=== PATIENT | male | born 1955 | race Caucasian/White ===

== ENCOUNTER 2024-03-14 14:45 | Outpatient (OUT) | payer OTHER, SELFPAY ==
--- NOTE | 2024-03-14 15:02 | XR_ITS ---
The [address] [address] Patient Name: JUDITH CRENSHAW MRN: [id number] date: 1955 Sex: M Assigned Patient Location: [facility] Current Patient Location: Accession/Order Number: [id number] Exam Date: 03/14/2024 15:35 Report Date: 03/15/2024 14:26 At the request of: KARLY SOSA Procedure: XR chest 2V PROCEDURE: XR chest 2V DATE: 03/14/2024 2:35 PM CDT COMPARISONS: 10/23/2015 CLINICAL INDICATION: 68 years Male Preop exam FINDINGS: The cardiomediastinal silhouette and pulmonary vasculature are within normal limits. The lungs are clear. There is no evidence of pleural effusion or pneumothorax. XR/XR chest 2V IMPRESSION: Chest radiograph is within normal limits. Electronically authenticated by: REBEL VILLARREAL Date: 03/15/2024 14:26
--- NOTE | 2024-03-14 15:02 | ECG_ITS ---
The [facility] Test Date: 2024-03-14 Pat Name: Dario Dick Department: Room: - Gender: Male Color Maker: : 1955 Requested By: Alex Jaimes Order Number: [id number] Reading MD: SIDDHARTH MUNIZ Measurements Intervals [place] Rate: 53 P: 35 [place]: 159 QRS: 18 QRSD: 126 T: 31 QT: 440 QTc: 415 Interpretive Statements SINUS BRADYCARDIA MODERATE INTRAVENTRICULAR CONDUCTION DELAY [110+ ms QRS DURATION] No previous ECG available for comparison Electronically Signed On 03-14-2024 22:08:32 EDT by SIDDHARTH MUNIZ
[2024-03-14 15:44] LABS: Basophils Percent Auto 0.6 % (0.2-2.0); Eosinophils Absolute Auto 0.1 10^3/uL (0.0-0.7); Eosinophils Percent Auto 1.7 % (0.9-7.0); Hematocrit 40.8 % (42.0-54.0); Immature Granulocytes Abs Auto 0.02 10^3/uL (0.00-0.03); Immature Granulocytes Pct Auto 0.3 % (0.0-0.5); Lymphocytes Percent Auto 28.7 % (20.5-60.0); Mean Corpuscular HGB Conc 34.3 g/dL (29.9-35.2); Mean Corpuscular Hemoglobin 28.9 pg (25.9-34.0); Mean Corpuscular Volume 84.3 fL (80.0-94.0); Mean Platelet Volume 9.4 fL (9.5-13.5); Monocytes Absolute Auto 0.6 10^3/uL (0.3-0.8); Monocytes Percent Auto 8.2 % (1.7-12.0); Neutrophils Absolute Auto 4.3 10^3/uL (1.4-6.5); Neutrophils Percent Auto 60.5 % (43.0-75.0); Platelet Count 249 10^3/uL (150-450); Red Blood Count 4.84 10^6/uL (4.70-6.10); Red Cell Distribution Width 12.8 % (11.0-15.0); White Blood Count 7.1 10^3/uL (4.0-11.0)
[2024-03-14 15:53] LABS: INR 0.99; Prothrombin Time 10.5 sec (9.0-11.6)
[2024-03-14 16:21] LABS: Anion Gap 11.7; BUN Creatinine Ratio 12.5; Carbon Dioxide 26.9 mmol/L (21.0-32.0); Chloride 103 mmol/L (98-107); Estimated GFR (African America >60 (>=60 mL/min/1.73m^2); Estimated GFR (Non-African Ame >60 (>=60 mL/min/1.73m^2); Glucose 149 mg/dL (74-106); Potassium 3.6 mmol/L (3.5-5.1); Sodium 138 mmol/L (136-145)
[2024-03-14 16:25] LABS: Estimated Average Glucose 166 mg/dL; Glycohemoglobin A1C 7.4 % (4.5-6.2)
== END 2024-03-14 14:46 | disposition home or self-care (01) ==
LOC: PST 14:53
PROVIDERS: Visit Provider Orthopaedic Surgery
DX: Z01.810 Encounter for preprocedural cardiovascular examination (principal); Z01.812 Encounter for preprocedural laboratory examination; G56.02 Carpal tunnel syndrome, left upper limb
CPT/HCPCS: 71046; 80048; 83036; 85025; 85610; 85730; 93005

== ENCOUNTER 2024-03-28 12:00 | Day surgery (SDC) | payer OTHER, SELFPAY ==
[2024-03-14 15:29] VITALS: BP 155/81; PULSE 64; TEMP 36.3; O2SAT 97; BMI 40.5
[2024-03-28 11:55] VITALS: BMI 40.0
[2024-03-28 12:20] VITALS: BMI 40.0
[2024-03-28 12:22] VITALS: BP 152/86; PULSE 68; TEMP 36.2; O2SAT 97
[2024-03-28] MEDS: 0.9 % SODIUM CHLORIDE 500 ML 50 ML IV (12:25)
[2024-03-28] MEDS: CEFAZOLIN SODIUM/DEXTROSE,ISO 2 GM/50 ML PIGGYBACK IV (13:26)
[2024-03-28] MEDS: BUPIVACAINE HCL 0.5% PF 50 MG/10 ML VIAL 5 ML INJ (13:30)
[2024-03-28] MEDS: LIDOCAINE HCL 1%-EPINEPHRINE 1:100,000 10 ML MDV 5 ML INJ (13:30)
[2024-03-28 13:55] VITALS: BP 116/77; PULSE 63; TEMP 36.3; O2SAT 97
--- NOTE | 2024-03-28 14:01 | PM.ORPRC ---
Procedure Note Date of procedure: 03/28/24 Pre-op diagnosis: Left carpal tunnel syndrome Post-op diagnosis: same as pre-op Procedure: Preoperative Diagnosis: Left carpal tunnel syndrome Postoperative Diagnosis: Same Procedure: Left endoscopic carpal tunnel release Tourniquet time: 4 Minutes at 225 mmHg Complications: None Indications for Surgery: The patient has had signs and symptoms of carpal tunnel syndrome that have failed conservative treatment. Options were discussed with the patient as well as risks and benefits and they have elected to proceed with the surgery. Operative procedure: Prior to surgery the patient received IV antibiotics. The operative extremity was marked preoperatively. After informed consent was obtained the patient was brought to the operating room where MAC anesthesia was administered. Preoperatively 5 mm 0.5% Marcaine plain with 5 mm 1% lidocaine with epinephrine were infiltrated in the operative sight. The arm was then prepped and draped in the usual sterile fashion after placement of a well padded tourniquet. The arm was elevated, exsanguinated, and the tourniquet was inflated. A 1 cm incision was then made in a preexisting distal wrist crease. Hemostasis was achieved with bipolar electrocautery. Blunt dissection was then carried down to the forearm fascia where a U-based flap was created. Proximally the fascia was incised for 2 cm under direct visualization. Attention was then turned to the endoscopic carpal tunnel release. The synovial elevator was used to clear the underside of the transverse carpal ligament of soft tissue. Sequential dilators were then placed. The endoscopic carpal tunnel released instrument was then placed. The transverse fibers were then identified and release from distal to proximal. The ligament was completely release. The tourniquet was deflated and hemostasis was achieved. The wound was irrigated and closed with a nylon suture. A sterile dressing was placed. The patient was brought to the recovery room. There were no preoperative or postoperative complications. Anesthesia: MAC and local Surgeon: Alex Jaimes Estimated blood loss (mL): 1 Pathology: none sent Condition: stable Disposition: PACU
[2024-03-28 14:10] VITALS: BP 137/90; PULSE 57; TEMP 36.4; O2SAT 96
[2024-03-28 14:25] VITALS: BP 154/78; PULSE 60; TEMP 36.4; O2SAT 97
--- OUTSIDE RECORDS SUMMARY | 2024-04-26 14:08 | XMS_ITS | CCD ---
Author Organization [facility] Care Team Providers Care Classification Inspector Name Role Phone UNKNOWN, PHYSICIAN Referring Unavailable [...] Provider Brittanie Marshall DO Primary Care Provider [phone] Kelly Reynoso MD Primary Care Provider Renetta Munoz NP Unavailable BRITTANIE MARSHALL Attending Unavailable ELIZABETH SHETH Attending Unavailable MATEUS TOBAR Attending Unavailable BRITTANIE MARSHALL Attending Unavailable ALAYNA BHAKTA Attending Unavailable RAFIQ MATTHEWS Referring Unavailable KELLY REYNOSO Attending Unavailable PATRICIA ROGEL Attending Unavailable Allergies Allergy Classification Reported Allergen(s) Allergy Type Date of Onset Reaction(s) Facility (1 source) Simvastatin Drug Allergy 9 muscle cramps [facility] Work Phone: (11 sources) Simvastatin Propensity [...] sources) Corticosteroid Start: 04-29-2023 End: 04-28-2024 fluocinolone ([place]oot[place]/FS Body) 0.01 % external oil Indications: Actinic [...] Coronary arteriosclerosis; Translations: [Atherosclerotic heart disease of inaja coronary artery without angina pectoris] Onset: 02-07-2019 [...] Range Facility Office Visiton 03-23-2024 Follow-up visit [id number] Judith Crenshaw 1955 M Date Provider Department Center 03/23/2024 [id number]-PBMSHMPATRICIA ROGEL Family History Problem Relation Age of Onset Heart attack Paternal Grandmother Heart attack Paternal Grandfather Family Status - Relation Status Age at Paternal Grandmother Paternal Grandfather Level of Service:27974 IN OFFICE/OUTPATIENT ESTABLISHED MOD MDM 30 MIN Reason for Visit and Comments: Coronary Artery Disease [187] - Not taking aspirin or statin. Says he feels great now that he's stopped all his medications. Denies chest pain. Gets SOB w/ carrying heavy objects. surgery clearance [Other] - Scheduled for carpal tunnel surgery with Dr. Matthews next week. Had EKG, CXR, and labs last week. Hypertension [477347] - BP was 102/56 last week in PCP's office. [facility] No Panel Informationon 07-09 Consent obtained: written (The rationale for Mohs as well as the risks, benefits, and alternatives. The risks of infection, scarring, bleeding, prolonged wound healing, incomplete removal, allergy to anesthesia or meds, nerve injury, and recurrence were addressed.) [place] Protocol: Procedure explained and questions answered to [...] sodium bicarbonate Procedure Details: Biopsy accession number: [id number] Biopsy lab: [facility] Date of biopsy: 06/30/2023 Frozen section biopsy [...] surgery? Yes When were antibiotics given? post-operative [facility] e No Panel Informationon 06-30 Type of [...] taken Amount of lidocaine used: 0.5 cc [facility] Type of biopsy: tangential Informed [...] taken Amount of lidocaine used: 0.5 cc [facility] Sunny 10-23-2020 NEIL Telephone (BRIONNA) JUDITH CRENSHAW ([id number]) 1955 M Date Time Provider Department 10/23/20 [...] by KEYANNA ZAPATA RN on 10/23/20 Normal [place] Covid-19 PCR (CVDTBH)on 04-26 Covid-19 PCR DETECTED Abnormal NOT DETECTED [facility] Comment on above: Result Comment: This test is not yet approved or cleared by the [place] FDA. When there are no FDA-approved or cleared tests available, and other criteria are met, FDA can make tests available under an emergency access mechanism called an Emergency Use Authorization (EUA). The EUA for this test is supported by the [place] of Health and Human Service's (HHS's) declaration [...] used). Performed By: #### C VDTB #### [facility] [address] [place] [address] Armida Hernandez EUA Statement SEE BELOW Normal [facility] Comment on above: Result Comment: This test is not yet approved or cleared by the [place] FDA. When there are no FDA-approved or cleared tests available, and other criteria are met, FDA can make tests available under an emergency access mechanism called an Emergency Use Authorization (EUA). The EUA for this test is supported by the City Tax Auditor of Health and Human Service?s (HHS?s) declaration [...] SARS-CoV-2. Performed By: #### C VDTB #### [facility] [address] [place] [id number] Armida Hernandez XR ANKLE LT MIN 3 [...] GARETH COREY Date: 2019-11-23 15:46 Normal The [facility] BASIC METABOLIC PANELon 12-23 Calcium [Mass/Vol] 8.8 mg/dL Normal 8.6-10.3 The [facility] Comment on above: Order Comment: No: D o not add to previous draw Performed By: #### 0 0071 #### [facility] [address] [place] [address], [facility] Chloride [Moles/Vol] 105 mmol/L Normal 98-107 The [facility] Comment on above: Order Comment: No: D o not add to previous draw Performed By: #### 0 0071 #### [facility] [address] [place] [address], [place] CO2 [Moles/Vol] 27 mmol/L Normal 21-31 The [facility] Comment on above: Order Comment: No: D o not add to previous draw Performed By: #### 0 0071 #### [facility] [address] [place] [address], [place] Creatinine [Mass/Vol] 0.89 mg/dL Normal 0.70-1.30 [facility] Comment on above: Order Comment: No: D o not add to previous draw Performed By: #### 0 0071 #### [facility] [address] [place] [address], [place] GFR/1.73 sq M predicted among blacks MDRD (S/P/Bld) [Vol rate/Area] mL/min/{1.73_m2} Normal >60 [facility] Comment on above: Order Comment: No: D o not add to previous draw Performed By: #### 0 0071 #### [facility] [address] [place] [address], [place] GFR/1.73 sq M predicted among non-blacks MDRD (S/P/Bld) [Vol rate/Area] mL/min/{1.73_m2} Normal >60 [facility] Comment on above: Order Comment: No: D o not add to previous draw Performed By: #### 0 0071 #### [facility] [address] [place] [address], [place] Glucose [Mass/Vol] 121 mg/dL High 70-100 [facility] Comment on above: Order Comment: No: D o not add to previous draw Performed By: #### 0 0071 #### [facility] [address] [place] [address], [place] Potassium [Moles/Vol] 3.7 mmol/L Normal 3.5-5.1 [facility] Comment on above: Order Comment: No: D o not add to previous draw Performed By: #### 0 0071 #### [facility] [address] [place] [address], [facility] Sodium [Moles/Vol] 138 mmol/L Normal 136-145 The [facility] Comment on above: Order Comment: No: D o not add to previous draw Performed By: #### 0 0071 #### [facility] [address] [place] [address], [facility] Urea nitrogen [Mass/Vol] 13 mg/dL Normal 7-25 [facility] Comment on above: Order Comment: No: D o not add to previous draw Performed By: #### 0 0071 #### [facility] [address] [place] [address], [facility] CBC W/DIFFon 01-08-2019 ABS BASOPHILS 0.1 10*3/uL Normal 0.0-0.2 The [facility] Comment on above: Order Comment: No: D o not add to previous draw Performed By: #### 5 0103 #### [facility] [address] [place] [address], [facility] ABS IMM GRANS 0.0 10*3/uL Normal 0.0-0.2 The [facility] Comment on above: Order Comment: No: D o not add to previous draw Performed By: #### 5 0103 #### [facility] [address] [place] [address], [facility] ABS NEUTROPHILS 4.9 10*3/uL Normal 1.6-7.[address] [facility] Comment on above: Order Comment: No: D o not add to previous draw Performed By: #### 5 0103 #### [facility] [address] [place] [address], [facility] Basophils/100 WBC (Bld) 0.7 % Normal 0.0-1.0 [facility] Comment on above: Order Comment: No: D o not add to previous draw Performed By: #### 5 0103 #### [facility] [address] [place] [address], [facility] Eosinophils (Bld) [#/Vol] 0.1 10*3/uL Normal 0.0-0.5 [facility] Comment on above: Order Comment: No: D o not add to previous draw Performed By: #### 5 0103 #### [facility] [address] [place] [address], [facility] Eosinophils/100 WBC (Bld) 1.7 % Normal 0.0-6.0 [facility] Comment on above: Order Comment: No: D o not add to previous draw Performed By: #### 5 0103 #### [facility] [address] [place] [address], [facility] Erythrocyte distribution width (RBC) [Ratio] 13.0 % Normal 11.5-15.0 [facility] Comment on above: Order Comment: No: D o not add to previous draw Performed By: #### 5 0103 #### [facility] [address] [place] [address], [facility] Hematocrit (Bld) [Volume fraction] 39.6 % Normal 39.0-50.0 [facility] Comment on above: Order Comment: No: D o not add to previous draw Performed By: #### 5 0103 #### [facility] [address] [place] [address], [facility] Hemoglobin (Bld) [Mass/Vol] 13.3 g/dL Normal 13.0-17.0 [facility] Comment on above: Order Comment: No: D o not add to previous draw Performed By: #### 5 0103 #### [facility] [address] [place] [address], [place] IMMATURE GRANS 0.5 % Normal 0.0-1.0 [facility] Comment on above: Order Comment: No: D o not add to previous draw Performed By: #### 5 0103 #### [facility] [address] [address], [facility] Lymphocytes (Bld) [#/Vol] 1.8 10*3/uL Normal 1.2-4.0 [facility] Comment on above: Order Comment: No: D o not add to previous draw Performed By: #### 5 0103 #### [facility] [address] [address], [facility] Lymphocytes/100 WBC (Bld) 23.4 % Normal 20.0-45.0 [facility] Comment on above: Order Comment: No: D o not add to previous draw Performed By: #### 5 0103 #### [facility] [address] [place] [address], [facility] MCH (RBC) [Entitic mass] 28.7 pg Normal 27.0-33.0 [facility] Comment on above: Order Comment: No: D o not add to previous draw Performed By: #### 5 0103 #### [facility] [address] [place] [address], [facility] MCHC (RBC) [Mass/Vol] 33.6 g/dL Normal 32.0-35.0 [facility] Comment on above: Order Comment: No: D o not add to previous draw Performed By: #### 5 0103 #### [facility] [address] [place] [id number], [facility] MCV (RBC) [Entitic vol] 85.5 fL Normal 82.0-98.0 [facility] Comment on above: Order Comment: No: D o not add to previous draw Performed By: #### 5 0103 #### [facility] [address] [place] [address], [facility] Monocytes (Bld) [#/Vol] 0.7 10*3/uL Normal 0.1-1.0 [facility] Comment on above: Order Comment: No: D o not add to previous draw Performed By: #### 5 0103 #### [facility] [address] [place] [address], [facility] MONOS 9.0 % Normal 5.0-12.0 [facility] Comment on above: Order Comment: No: D o not add to previous draw Performed By: #### 5 0103 #### [facility] [address] [place] [address], [facility] Neutrophils/100 WBC (Bld) 64.7 % Normal 40.0-72.0 [facility] Comment on above: Order Comment: No: D o not add to previous draw Performed By: #### 5 0103 #### [facility] [address] [place] [address], [facility] Nucleated RBC/100 WBC (Bld) [Ratio] 0 % Normal 0-0 [facility] Comment on above: Order Comment: No: D o not add to previous draw Performed By: #### 5 0103 #### [facility] [address] [place] [id number], [facility] PLAT CNT 224 10*3/uL Normal 150-[address] [facility] Comment on above: Order Comment: No: D o not add to previous draw Performed By: #### 5 0103 #### [facility] [address] [place] [id number], [facility] RBC (Bld) [#/Vol] 4.63 10*6/uL Normal 4.20-5.70 The [facility] Comment on above: Order Comment: No: D o not add to previous draw Performed By: #### 5 0103 #### [facility] [address] [place] [address], [place] WBC (Bld) [#/Vol] 7.56 10*3/uL Normal 4.00-10.60 [facility] Comment on above: Order Comment: No: D o not add to previous draw Performed By: #### 5 0103 #### [facility] [address] [place] [address], [facility] POC GLUCOSE LABon 01-08-2019 Glucose [Mass/Vol] 152 mg/dL High 70-100 The [facility] Comment on above: Performed By: #### 8 5499 #### [facility] [address] [place] [address], [place] Glucose [Mass/Vol] 149 mg/dL High 70-100 [facility] Comment on above: Performed By: #### 8 5499 #### [facility] [address] [place] [address], [facility] History and Physicalon 01-07 History and Physical MR#: [id number] [facility] Pt. Name: Judith Crenshaw Admitted: 01/07/2019 Date of : 1955 Attending Physician: Michelle Paez MD Room #: [id number] Discharge Date: HISTORY AND PHYSICAL CHIEF COMPLAINT: [...] Paez MD Date Trans: 01/07/2019 09:13 P/mmo [id number] Normal [facility] Vital Signs Date Time Vital Sign Value Performing Clinician Kathy pisano 03-17-2024 15:17040 Body height 172.7 cm Kelly Reynoso MD Work Phone: [facility] 03-17-2024 15:17-0400 Body mass index (BMI) [Ratio] 41.48 kg/m2 Kelly Reynoso MD Work Phone: [facility] 03-17-2024 15:17040 Body weight 123.74 kg Kelly Reynoso MD Work Phone: [facility] 03-17-2024 15:17-0400 Diastolic blood pressure 56 mm[Hg] Kelly Reynoso MD Work Phone: [facility] 03-17-2024 15:17-0400 Heart rate 79 /min Kelly Reynoso MD Work Phone: [facility] 03-17-2024 15:17-0400 SaO2% (BldA) [Mass fraction] 96 % Kelly Reynoso MD Work Phone: [facility] 03-17-2024 15:17-0400 Systolic blood pressure 102 mm[Hg] Kelly Reynoso MD Work Phone: [facility] 07-09-2023 08:35-0500 Diastolic blood pressure 90 mm[Hg] Mateus Tobar MD Work Phone: [facility] 07-09-2023 08:35-0500 Systolic blood pressure 170 mm[Hg] Mateus Tobar MD Work Phone: [facility] Encounters Encounter Date Encounter Type Care Provider Facility Start: 03-29-2024 End: 03-29-2024 Telephone encounter Kelly Reynoso MD Work Phone: [facility] Start: 03-23-2024 End: 03-23-2024 ambulatory [facility] Start: 03-23-2024 End: 03-23-2024 Encounter for other preprocedural examination [facility] Start: 03-17-2024 End: 03-17-2024 Office outpatient visit 25 minutes Kelly Reynoso MD Work Phone: [facility] Comment on above: Preoperative clearan ce (Primary Dx); Statin myopathy; History of colon polyps; Coronary artery disease involving inaja coronary artery of inaja heart without angina pectoris (CMS/HCC); Type 2 diabetes mellitus without complication, without long-term current use of insulin ([facility]); Non-compliance Start: 03-17-2024 End: 03-17-2024 Preoperative state Kelly Reynoso MD Work Phone: [facility] Start: 03-17-2024 End: 03-17-2024 ambulatory KELLY [...] outpatient new 30 minutes Elizabeth A Felter SODIUM CHLORITE OPERATOR-EXTENSION CLERK Work Phone: [facility] Comment on above: Other seborrheic fito matitis (Primary Dx); Neoplasm of unspecified behavior of bone, soft tissue, and skin Start: 06-30-2023 Bamboo flowsheet Elizabeth A Fel ter SODIUM CHLORITE OPERATOR-EXTENSION CLERK Work Phone: [facility] Start: 06-30-2023 Bamboo flowsheet Elizabeth A Fel ter SODIUM CHLORITE OPERATOR-EXTENSION CLERK Work Phone: [facility] Start: 06-16-2023 Telephone encounter Cammie Juárez SODIUM CHLORITE OPERATOR-EXTENSION CLERK Work Phone: [facility] Start: [...] Evaluation and management of inpatient PHYSICIAN UNKNOWN Facility:[facility] Procedures Date Procedure Procedure Detail Performing Clinician Start: 07-09-2023 [facility] Mateus stack MD Work Phone: Start: 06-30-2023 End: 06-30-2023 SKIN / NAIL BIOPSY Elizabeth Sheth APR N-EXTENSION CLERK Work Phone: Start: 07-01-2018 Colonoscopy Elizabeth broderick [employer]IUM CHLORITE OPERATOR-EXTENSION CLERK Work Phone: Plan of Treatment Date Care Activity Detail Author Start: 07-01-2028 Screening for malignant neoplasm of colon [facility] Start: 06-30-2024 End: 06-30-2024 Patient encounter procedure 06/30/2024 3:55 PM EST Office Visit [facility] [address] [place] [address] Elizabeth Sheth, SODIUM CHLORITE OPERATOR-EXTENSION CLERK [address] [place], [...] [facility] [address] [place] [id number] Kelly Reynoso MD [address] [facility] [facility] [place] [address] Arrived [facility] Comment on above: Arrived Start: 03-14-2024 End: 03-14-2024 Patient encounter procedure 03/14/2024 4:30 PM EDT Office Visit [facility] [address] [facility] [place] [id number] Renetta Munoz NP [address] [facility] [place] [id number] [facility] Start: 01-24-2024 Influenza vaccination Influenza Vaccine (#1) [facility] Start: 09-14-2023 Hemoglobin A1c measurement Diabetes: Hemoglobin A1C [facility] Start: 07-09-2023 End: 07-09-2023 Patient encounter procedure 07/09/2023 8:30 AM EST Office Visit [facility] [address] [place] [phone] Mateus Tobar MD [address] [place] [address] Arrived [facility] Comment on above: Arrived Start: 2022 Fall Risk Screening Fall Risk Screening [facility] Start: 05-28-2022 Glaucoma screening Diabetes: Retinopathy Screening [facility] Start: 11-10-2007 Administration of varicella zoster vaccine Zoster (Shingles) Vaccine (1 of 2) [facility] Start: 1976 DTaP,Tdap and Td Vaccines (1 - Tdap) DTaP,Tdap and Td Vaccines (1 - Tdap) [facility] Start: 11-10-1975 Adult BMI Screening Adult BMI Screening [facility] Start: 1969 Depression Screening Depression Screening [facility] Start: 1969 Tobacco Screening Tobacco Screening [facility] Start: 1955 Screening for malignant neoplasm of colon [facility] Dermatopathology exam Dermatopat hology exam Pathology and Cytology Timed Neoplasm of unspecified behavior of bone, soft tissue, and skin Release Upon Ordering for 1 Occurrences starting 06/30/2023 [facility] Work Phone: Comment on above: Release Upon Ordering for 1 Occurrences starting 06/30/2023 Immunizations Immunization Date Immunization Notes Care Provider Monserrat correia 02-22-2023 influenza, seasonal, injectable Elizabeth Sheth SODIUM CHLORITE OPERATOR-EXTENSION CLERK Work Phone: [facility] 02-22-2023 influenza virus vacc ine, unspecified formulation Kelly Reynoso MD Work Phone: [facility] 02-07-2020 influenza, injectabl e, quadrivalent, preservative free Elizabeth Zunigaer SODIUM CHLORITE OPERATOR-EXTENSION CLERK Work Phone: [facility] 02-23-2018 seasonal influenza, intradermal, preservative free Elizabeth Zunigaer SODIUM CHLORITE OPERATOR-EXTENSION CLERK Work Phone: [facility] 02-23-2017 seasonal influenza, intradermal, preservative free Elizabeth Felter SODIUM CHLORITE OPERATOR-EXTENSION CLERK Work Phone: [facility] Payers Date Payer Category Payer Private Health Insurance [id number] 2022 Unknown [employer] [id number] 2022-Present [phone] [address] [address] [place] [address] [id number] 2022 Unknown [id number] 1959 Unknown [id number] 1955 Unknown [id number] [id number]. 2.647 1955 Unknown [id number] 2.16.840.1.787690.3.579. 2.593 1955 Unknown [id number] 2.16.840.1.496684.3.579. 2.593 1955 Unknown [id number] 2.16.840.1.512523.3.579. 2.593 1955 Unknown [id number] 2.16.840.1.349922.3.579. 2.593 1955 Unknown [id number] 2.16.840.1.468084.3.579. 2.1259 1955 Unknown [id number] 2.16.840.1.082495.3.579. 2.1259 1955 Unknown [id number] 2.16.840.1.438378.3.579. 2.1259 1955 Unknown [id number] 2.16.840.1.997957.3.579. 2.1259 1955 Unknown [id number] 2.16.840.1.552766.3.579. 2.9 1955 Unknown [id number] [id number]. 2.1259 Social History Date Type Detail Facility Start: 01-06-2019 End: 03-17-2024 Tobacco smoking status NHIS Ex-smoker [facility] End: 05-25-2004 History of tobacco use Current smoker [facility] Start: 01-06-2019 End: 03-17-2024 Tobacco use and exposure Smokeless tobacco non-user [facility] Start: 01-06-2019 Alcohol intake Current non-drinker of alcohol (finding) [facility] Start: 07-01-2018 End: 03-17-2024 History of Social function [facility] Start: 07-01-2018 End: 03-17-2024 Alcohol Use Disorder Identification Test - Consumption [AUDIT-C] [facility] Frequency of Alcohol Consumption Never [facility] Start: 1955 Sex Assigned At Not on file [facility] End: 05-25-2004 History of tobacco use Cigarette Smoker [facility] Start: 06-15-2023 End: 07-09-2023 Alcohol intake Current drinker of alcohol (finding) [facility] How often to you hav e a drink containing alcohol? Monthly or less [facility] How often do you hav e 6 or more drinks on 1 occasion? Never [facility] Start: 05-12-2023 Alcohol Comment caffeine: 1-2 cups per day [facility] Start: 03-17-2024 Alcoholic beverage intake Ex-drinker (finding) [facility] Clinical Notes 06-16-2023 to 03-29-2024 Telephone Encounter [...] said reports are in his results from [facility] . He doesn't want to come in for another appt if he doesn't have too. 'Judith- [phone] [facility] 03-29-2024 Miscellaneous Notes Judith called - asking if you wanted to send in scripts for BP and something for his high sugar . He said reports are in his results from [facility] . He doesn't want to come in for another appt if he doesn't have too. 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 [facility] 03-17-2024 History of Present illness Narrative Images from the original note were not included. Judith Crenshaw is a 68 y.o. male presents with chief complaint of Establish Care (03/28 left wrist 04/11 right wrist severe carpel tunnel. Dr rafiq matthews in [place]. [facility] CENTER. ) [facility]: [facility] in [place] History of Present Illness The patient presents [...] capsule, by mouth, bid, 10 days fluocinolone ([place]-[facility]/FS Body) 0.01 % external oil Topical, 3 [...] the time of the lab test. His trauma counsellor will be informed about his visit today. The trauma counsellor will determine if he is fit for [...] prior to surery. He is seeing his trauma counsellor for cardiac clearnace. Statin myopathy History of colon polyps Relevant Orders Ambulatory referral to General Surgery Non-compliance documented in this encounter [facility] 03-11-2024 Telephone encounter Note Pt was Rolando pt and chose Renetta as EMBRYOLOGY PROFESSOR I scheduled an appt for him for [...] he can get his labs done too. [facility] 03-11-2024 Miscellaneous Notes Pt was Rolando pt and chose Renetta as EMBRYOLOGY PROFESSOR I scheduled an appt for him for [...] labs done too. documented in this encounter [facility] 07-09-2023 History of Present illness [...] meds, nerve injury, and recurrence were addressed.) [place] Protocol: Procedure explained and questions answered to [...] sodium bicarbonate Procedure Details: Biopsy accession number: [id number] Biopsy lab: [facility] Date of biopsy: 06/30/2023 Frozen section biopsy [...] visit: 1 year documented in this encounter [facility] 06-30-2023 History of Present illness [...] Modifying factors: none Associated symptoms: scaly Treatments: Golf Course Laborer Dr. Olson order prescribed a fluocinolone solution [...] year follow up documented in this encounter [facility] 06-16-2023 Miscellaneous Notes Called Evangelist [...] schedule an appointment. documented in this encounter [facility] 06-16-2023 Telephone encounter Note Called Evangelist regarding the screening colonoscopy referral that our office received from Dr. Marshall, I left a message on voicemail to call the office back to schedule an appointment. Last colonoscopy 07/01/[address] Robin [facility] 06-16-2023 Telephone encounter Note Called Evangelist regarding the referral that our office received, I left a message on voicemail to call the office back to schedule an appointment. [facility] 06-16-2023 Telephone encounter Note Called Evangelist regarding the referral that our office received, I left a message on his voicemail to call the office back to schedule an appointment. [facility] Evaluation note Diagnosis Other seborrheic dermatitis- Primary Neoplasm of unspecified behavior of bone, soft tissue, and skin documented in this encounter [facility] HealthcareEvaluation note* Diagnosis Basal cell carcinoma (BCC) of skin of right ear- Primary documented in this encounter [facility]* Diagnosis Preoperative clearance- Primary Unspecified pre-operative examination Statin myopathy Toxic myopathy History of colon polyps Coronary artery disease involving inaja coronary artery of inaja heart without angina pectoris ([facility]/H[facility]) Type 2 diabetes mellitus without complication, without long-term current use of insulin ([facility]) Non-compliance Personal history of noncompliance with medical treatment, presenting hazards to health documented in this encounter [facility] HealthcareInstructionsNot on filedocumented in this encounterRockingham Memorial HospitalEnteGreat System Summary Purpose Family History No Family History Records FoundNo Family History Records FoundNo Family History Records FoundNo Family History Records FoundNo Family History Records Found Advance Directives No Advanced Directives Records FoundNo Advanced Directives Records FoundNo Advanced Directives Records FoundNo Advanced Directives Records FoundNo Advanced Directives Records Found Hospital Course Note MR#: [id number] [facility] Pt. Name: Judith Crenshaw Admitted: 01/07/2019 Discharged: [...] and content) DATE CREATED AUTHOR 01/11/[address] [facility] DATE CREATED AUTHOR AUTHOR'S ORGANIZ ATION 05/31/2020 [facility] DATE CREATED AUTHOR AUTHOR'S ORGANIZ ATION 06/25/2021 [place] DATE CREATED AUTHOR AUTHOR'S ORGANIZ ATION 03/19/2024 [facility] DATE CREATED AUTHOR AUTHOR'S ORGANIZ ATION 03/25/2024 [facility] Care Teams (unrecognized sec tion and content) Classification Inspector Relationship Specialty Start Date End Date Brittanie Marshall DO [address] [place] [address] PCP - General Family Medicine 11/22/20 Classification Inspector Relationship Specialty Start Date End Date Brittanie Marshall DO [address] [place] [address] PCP - General Family Medicine 09/30/22 Classification Inspector Relationship Specialty Start Date End Date Brittanie Marshall DO [address] [place] [address] PCP - General Family Medicine 09/30/22 Classification Inspector Relationship Specialty Start Date End Date Brittanie Marshall DO [address] [place] [address] PCP - General Family Medicine 09/30/22 Classification Inspector Relationship Specialty Start Date End Date Brittanie Marshall DO [address] [place] [address] PCP - General Family Medicine 09/30/22 Classification Inspector Relationship Specialty Start Date End Date Kelly Reynoso MD [address] [place] [address] PCP - General Family Medicine 03/11/24 Renetta Munoz NP [address] [place] [address] Nurse Practitioner Family Medicine 03/11/24 Classification Inspector Relationship Specialty Start Date End Date Kelly Reynoso MD [address] [place] [address] PCP - General Family Medicine 03/11/24 Renetta Munoz NP [address] [place] [address] Nurse Practitioner Family Medicine 03/11/24 Classification Inspector Relationship Specialty Start Date End Date Kelly Reynoso MD [address] [place] [address] PCP - General Family Medicine 03/11/24 Renetta Munoz NP [address] [place] [address] Nurse Practitioner Family Medicine 03/11/24 Classification Inspector Relationship Specialty Start Date End Date Kelly Reynoso MD [address] [place] [address] PCP - General Family Medicine 03/11/24 Renetta Munoz NP [address] [place] [address] Nurse Practitioner Family Medicine 03/11/24 Reason for Visit (unrecogniz ed section and content) Reason Comments Suspicious Skin Lesion Reason Comments Mohs micrographic surgery Reason Comments Establish Care 03/28 left wrist 03/25 8 right wrist severe carpel tunnel. Dr rafiq matthews in [place]. Surgery is is being done at [facility]. FOR RECORDS PERTAINING TO PATIENTS [...] BE BASED ON THE PRIMARY CLINICAL RECORDS. [facility] [employer] [facility]. provides no warranty or guarantee of the accuracy or completeness of information in this document.
== END 2024-03-28 14:30 | disposition home or self-care (01) ==
LOC: SURGOUT 04-26 13:57
PROVIDERS: Visit Provider Orthopaedic Surgery
PROC: (CPT 1810; principal; 2024-03-28 13:00)
DX: G56.02 Carpal tunnel syndrome, left upper limb (principal); E11.9 Type 2 diabetes mellitus without complications
CPT/HCPCS: 29848; 36415; 82948; J0665; J0690; J2250; J2704; J3010

== ENCOUNTER 2024-04-05 15:18 | Outpatient (OUT) | payer OTHER, SELFPAY | END 2024-04-05 15:19 | disposition home or self-care (01) | LOC: PST 15:18 | PROVIDERS: PCP Family Medicine; Visit Provider Orthopaedic Surgery | DX: Z01.818 Encounter for other preprocedural examination (principal); G56.01 Carpal tunnel syndrome, right upper limb; E11.9 Type 2 diabetes mellitus without complications ==

== ENCOUNTER 2024-04-11 11:54 | Day surgery (SDC) | payer OTHER, SELFPAY ==
--- OUTSIDE RECORDS SUMMARY | 2024-03-28 11:47 | XMS_ITS | CCD ---
Author Organization [facility] Care Team Providers Care Truss Designer Name Role Phone UNKNOWN, PHYSICIAN Referring Unavailable UNKNOWN, PHYSICIAN Primary Care Unavailable GRIFFIN NOEL Attending Unavailable GRIFFIN NOEL Admitting Unavailable JOHNNYANDER, EDDIE Attending Unavailable JOHNNYANDER, EDDIE Admitting Unavailable FRANCOIS YING Consulting Unavailable FRANCOIS YING Attending Unavailable STEPAN, FRANCOIS Admitting Unavailable GARETH COREY V Consulting Unavailable JOHNNYANDER, EDDIE Attending Unavailable MANAN, EDDIE Admitting Unavailable HIGHLANDER, EDDIE Consulting Unavailable CASEY QUINTERO Attending Unavailable CASEY QUINTERO Admitting Unavailable Brittanie Marshall DO Primary Care Provider [phone] Brittanie Marshall DO Primary Care Provider Kelly Reynoso MD Primary Care Provider Alexander LAWSON, Renetta Unavailable BRITTANIE MARSHALL Attending Unavailable ELIZABETH SHETH Attending Unavailable MATEUS TOBAR Attending Unavailable BRITTANIE MARSHALL Attending Unavailable ALAYNA BHAKTA Attending Unavailable RAFIQ MATTHEWS Referring Unavailable KELLY REYNOSO Attending Unavailable PATRICIA ROGEL Attending Unavailable Allergies Allergy Classification Reported Allergen(s) Allergy Type Date of Onset Reaction(s) Facility (1 source) Simvastatin Drug Allergy 9 [facility] (10 sources) Simvastatin Propensity to adverse reactions 9 [facility] Medications Current Medications Medication Drug Class(es) Dates Sig (Normalized) Sig (Original) amoxicillin 250 mg oral capsule (1 source) Penicillin-class Antibacterial take 2 capsules by mouth twice daily as needed amoxicillin (AMOXIL) 250 mg capsule Take 500 mg by mouth 2 (two) times a day as needed. 0 Active aspirin 81 mg delayed release oral tablet (11 sources) Platelet Aggregation Inhibitor, Nonsteroidal Anti-inflammatory Drug Start: 01-06-2019 End: 03-17-2024 take 1 tablet by mouth once daily aspirin 81 mg Take 1 tablet (81 mg total) by mouth daily. 30 tablet 11 01/06/2019 Active atorvastatin 80 mg oral tablet (10 sources) HMG-CoA Reductase Inhibitor Start: 09-30-2022 End: 09-30-2023 take 1 tablet by mouth in the morning atorvastatin (Lipitor) 80 MG tablet Take 80 mg by mouth in the morning. 09/30/2022 Active cephalexin 500 mg oral capsule (6 sources) Cephalosporin Antibacterial Start: 07-09-2023 take 1 capsule by mouth twice daily cephalexin (Keflex) 500 MG capsule Indications: Basal cell carcinoma (BCC) of skin of right ear Take 1 capsule, by mouth, bid, 10 days 20 capsule 07/09/2023 Active fluocinolone acetonide 0.1 mg/ml topical oil (10 sources) Corticosteroid Start: 04-29-2023 End: 04-28-2024 fluocinolone ([place]-Smoothe/FS Body) 0.01 % external oil Indications: Actinic keratoses Apply topically 3 (three) times a day 118.28 mL 04/29/2023 04/28/2024 Active fluocinonide 0.5 mg/ml topical solution (9 sources) Corticosteroid Start: 06-30-2023 fluocinonide (Lidex) 0.05 % external solution Indications: Other seborrheic dermatitis Apply to affected areas on the scalp, up to twice a day when flared, 30 day supply 20 mL 11 06/30/2023 Active ketoconazole 20 mg/ml medicated shampoo (5 sources) Azole Antifungal Start: 07-02-2023 End: 08-01-2023 ketoconazole (NIZOral) 2 % shampoo Indications: Other seborrheic dermatitis Apply topically 2 (two) times a week Lather on scalp 2-3 x a week, leave on 5 min before rinsing 120 mL 11 07/02/2023 08/01/2023 Active metoprolol tartrate 25 mg oral tablet (1 source) beta-Adrenergic [place] Start: 01-06-2019 take 1 tablet by mouth twice daily metoprolol tartrate (LOPRESSOR) 25 mg tablet Take 1 tablet (25 mg total) by mouth 2 (two) times a day. 60 tablet 11 01/06/2019 Active Completed/Discontinued Medications Medication Drug Class(es) Dates Sig (Normalized) Sig (Original) metFORMIN hydrochloride 500 mg oral tablet (10 sources) Biguanide Start: 06-16-2023 End: 06-15-2024 take 1 tablet by mouth at mealtime metFORMIN (Glucophage) 500 MG tablet Indications: Type 2 diabetes mellitus with hyperglycemia, without long-term current use of insulin (CMS/HCC) Take 1 tablet (500 mg) by mouth in the morning. Take with meals. 100 tablet 3 06/16/2023 03/17/2024 Discontinued (Therapy completed) Problems Active Problems Problem Classification Problem Date Documented Da te Episodic/Chronic Anxiety disorders (10 sources) Claustrophobia; Translations: [Claustrophobia] Onset: 04-29-2023 04-29-2023 Chronic Coronary atherosclerosis and other heart disease (20 sources) Coronary arteriosclerosis; Translations: [Atherosclerotic heart disease of nome coronary artery without angina pectoris] Onset: 02-07-2019 04-29-2023 Chronic Diabetes mellitus with complications (4 sources) Type 2 diabetes mellitus with diabetic neuropathy, unspecified; Translations: [TYPE 2 DM W/DIABETIC NEUROPATHY UNS] Onset: 12-02-2019 Diabetes mellitus without complication (20 sources) Diabetes mellitus; Translations: [Type 2 diabetes mellitus without complications] Onset: 07-14-2022 01-06-2019 Chronic Disorders of lipid metabolism (11 sources) Mixed hyperlipidemia; Translations: [Mixed hyperlipidemia] Onset: 07-14-2022 01-06-2019 Chronic Diverticulosis and diverticulitis (11 sources) Diverticular disease; Translations: [Diverticulosis of intestine, part unspecified, without perforation or abscess without bleeding] Onset: 05-25-2006 01-06-2019 Chronic Essential hypertension (11 sources) Hypertensive disorder; Translations: [Essential (primary) hypertension] Onset: 07-14-2022 01-06-2019 Chronic Hyperplasia of prostate (10 sources) Benign prostatic hyperplasia; Translations: [Benign prostatic hyperplasia with lower urinary tract symptoms] Onset: 04-29-2023 04-29-2023 Chronic Immunizations and screening for infectious disease (3 sources) Contact with and (suspected) exposure to other viral communicable diseases; Translations: [CONTCT EXPS OTH VIRL COMMUNICABL DZ] Onset: 05-24-2020 Episodic Neoplasms of unspecified nature or uncertain behavior (2 sources) Neoplastic disease; Translations: [Neoplasm of unspecified behavior of bone, soft tissue, and skin] 06-30-2023 Episodic Osteoarthritis (20 sources) Primary osteoarthritis, left ankle and foot; Translations: [Osteoarthritis] Onset: 02-28-2011 01-06-2019 Chronic Other and unspecified benign neoplasm (4 sources) History of polyp of colon; Translations: [History of colon polyps] 03-17-2024 Episodic Other connective tissue disease (10 sources) History of repair of hip joint; Translations: [Presence of left artificial hip joint] Onset: 04-29-2023 04-29-2023 Chronic Other ear and sense organ disorders (11 sources) Hearing loss; Translations: [Unspecified hearing loss, unspecified ear] Onset: 07-14-2022 01-06-2019 Chronic Other ear and sense organ disorders (10 sources) Sensorineural hearing loss, bilateral; Translations: [Sensorineural hearing loss, bilateral] Onset: 04-29-2023 04-29-2023 Chronic Other inflammatory condition of skin (2 sources) Seborrheic dermatitis; Translations: [Other seborrheic dermatitis] 06-30-2023 Episodic Other nervous system disorders (11 sources) Carpal tunnel syndrome; Translations: [Carpal tunnel syndrome, unspecified upper limb] Onset: 07-14-2022 01-06-2019 Chronic Other nervous system disorders (10 sources) Chronic pain; Translations: [Other chronic pain] Onset: 04-29-2023 04-29-2023 Chronic Other nervous system disorders (2 sources) Drug-induced myopathy; Translations: [Drug-induced myopathy] 03-17-2024 Episodic Other non-epithelial cancer of skin (2 sources) Basal cell carcinoma of ear; Translations: [Basal cell carcinoma of skin of right ear and external auricular canal] 07-09-2023 Episodic Other nutritional; endocrine; and metabolic disorders (11 sources) Morbid obesity; Translations: [Morbid (severe) obesity due to excess calories] Onset: 07-14-2022 01-06-2019 Chronic Residual codes; unclassified (11 sources) Obstructive sleep apnea syndrome; Translations: [Obstructive sleep apnea (adult) (pediatric)] Onset: 07-14-2022 01-06-2019 Chronic Residual codes; unclassified (2 sources) Noncompliance with treatment; Translations: [Non-compliance] 03-18-2024 Episodic Unclassified (1 source) COVID-19; Translations: [COVID-19] Onset: 05-30-2020 Past or Other Problems Problem Classification Problem Date Documented Da te Episodic/Chronic Abdominal hernia (20 sources) Umbilical hernia; Translations: [Umbilical hernia without obstruction or gangrene] Onset: 07-14-2022 01-06-2019 Episodic Anal and rectal conditions (10 sources) Chronic anal fissure; Translations: [Chronic anal fissure] Onset: 04-29-2023 04-29-2023 Episodic Cardiac dysrhythmias (11 sources) Tachycardia; Translations: [Tachycardia, unspecified] Onset: 07-14-2022 01-06-2019 Episodic Conditions associated with dizziness or vertigo (11 sources) Lightheadedness; Translations: [Dizziness and giddiness] Onset: 07-14-2022 01-06-2019 Episodic Coronary atherosclerosis and other heart disease (10 sources) Stented coronary artery; Translations: [Presence of coronary angioplasty implant and graft] Onset: 04-29-2023 04-29-2023 Episodic Other and unspecified benign neoplasm (10 sources) Lipoma of thigh; Translations: [Benign lipomatous neoplasm of skin and subcutaneous tissue of right leg] Onset: 04-29-2023 04-29-2023 Episodic Other connective tissue disease (1 source) Pain in left foot; Translations: [PAIN IN LEFT FOOT] Onset: 12-05-2019 Episodic Other diseases of kidney and ureters (10 sources) Disorder of urinary tract; Translations: [Other obstructive and reflux uropathy] Onset: 04-29-2023 04-29-2023 Episodic Other diseases of veins and lymphatics (11 sources) Peripheral venous insufficiency; Translations: [Venous insufficiency (chronic) (peripheral)] Onset: 07-14-2022 01-06-2019 Episodic Other diseases of veins and lymphatics (10 sources) Varicocele; Translations: [Scrotal varices] Onset: 04-29-2023 04-29-2023 Episodic Other ear and sense organ disorders (10 sources) Does use hearing aid; Translations: [Presence of external hearing-aid] Onset: 04-29-2023 04-29-2023 Episodic Other lower respiratory disease (11 sources) Dyspnea on exertion; Translations: [Other forms of dyspnea] Onset: 07-14-2022 01-06-2019 Episodic Other non-traumatic joint disorders (4 sources) Pain in left ankle and joints of left foot; Translations: [PAIN IN LEFT ANKLE] Onset: 11-23-2019 Episodic Other screening for suspected conditions (not mental disorders or infectious disease) (11 sources) Thallium stress test abnormal; Translations: [Abnormal result of other cardiovascular function study] Onset: 01-06-2019 01-06-2019 Episodic Other skin disorders (1 source) Onychogryphosis; Translations: [ONYCHOGRYPHOSIS] Onset: 02-06-2020 Episodic Spondylosis; intervertebral disc disorders; other back problems (20 sources) Acute back pain with sciatica; Translations: [Lumbago with sciatica, left side] Onset: 04-29-2023 04-29-2023 Episodic Results Test Name Value Interpretation Reference Range Facility Office Visiton 03-23-2024 Follow-up visit [id number] Judith Crenshaw 1955 M Date Provider Department Center 03/23/2024 [id number] ROGEL URBANO [facility] Family History Problem Relation Age of Onset Heart attack Paternal Grandmother Heart attack Paternal Grandfather Family Status - Relation Status Age at Paternal Grandmother Paternal Grandfather Level of Service:17351 OR OFFICE/OUTPATIENT ESTABLISHED MOD MDM 30 MIN Reason for Visit and Comments: Coronary Artery Disease [187] - Not taking aspirin or statin. Says he feels great now that he's stopped all his medications. Denies chest pain. Gets SOB w/ carrying heavy objects. surgery clearance [Other] - Scheduled for carpal tunnel surgery with Dr. Matthews next week. Had EKG, CXR, and labs last week. Hypertension [897462] - BP was 102/56 last week in PCP's office. [facility] No Panel Informationon 07-09 Consent obtained: written (The rationale for Mohs as well as the risks, benefits, and alternatives. The risks of infection, scarring, bleeding, prolonged wound healing, incomplete removal, allergy to anesthesia or meds, nerve injury, and recurrence were addressed.) [place] Protocol: Procedure explained and questions answered to patient or proxy's satisfaction: Yes Test results available and properly labeled: Yes Pathology report reviewed: Yes Photo or diagram used for site identification: Yes Site/side marked: Yes Anticoagulation: Is the patient taking prescription anticoagulant and/or aspirin prescribed/recommended by a physician? Yes (81 mg aspirin) Was the anticoagulation regimen changed prior to Mohs? No Anesthesia: Anesthesia method: local infiltration Local anesthetic: lidocaine 1% WITH epi and sodium bicarbonate Procedure Details: Biopsy accession number: [id number] Biopsy lab: [facility] Date of biopsy: 06/30/2023 Frozen section biopsy performed: Yes Specimen debulked: No Pre-Op diagnosis: basal cell carcinoma BCC subtype: infiltrative and nodular MohsAIQ Surgical site (if tumor spans multiple areas, please select predominant area): ear Surgery side: right Surgical site (from skin exam): Right ear Pre-operative length (cm): 0.8 Pre-operative width (cm): 0.8 Indications for Mohs surgery: anatomic location where tissue conservation is critical and aggressive histology Previously treated? No Mohs Appropriate Use Criteria Score: 8 Details of micrographic surgery: Mohs accession number: [id number] Micrographic Surgery Details: Post-operative length (cm): 2.5 Post-operative width (cm): 1.5 Number of Mohs stages: 2 Stage 1 Comments: The area was prepped with Betadine, draped in a sterile fashion, and infiltrated with local anesthetic. Sterile technique was used throughout the procedure. The marked area of clinical tumor with a small rim of clinically normal surrounding skin was removed using Mohs technique with beveled edges. Hash maloney were placed for orientation of the specimen. Hemostasis was achieved with electrodessication. After hemostasis, the defect was measured and recorded, a temporary sterile dressing was placed over the wound, and the patient was escorted to the waiting area. The specimen was oriented, mapped, and if necessary, divided into sections. A Mohs map was prepared. The specimen was placed in a labeled maged dish and was taken to the Mohs lab where it was chromacoded and processed. Mohs sections were prepared with serial tissue sections, stained, and evaluated by Dr. Tobar for interpretation of deep and peripheral margins. The Mohs map was marked accordingly. Amount of lidocaine used: 3.0 cc Estimated blood loss: <1.0 cc Defect size: 1.6 x 1.5 cm Number of blocks per stage: 1 Number of positive blocks: 1 Tumor features identified on Mohs section: basal carcinoma Tumor features identified on Mohs section comment: nodular Depth of defect after stage: dermis Stage 2 Comments: The patient returned to the procedure room, the dressing was remove, the tumor area was re-prepped and draped, and anesthesia was assessed and augmented as necessary. A layer of tissue around the positive margin(s) was removed, and the tissue was oriented, mapped, and processed in an identical fashion as for Stage 1. Hemostasis was achieved and dressing placed as in Stage 1. The patient was escorted to the waiting area. As with Stage 1, Mohs sections were prepared with serial tissue sections, stained, and evaluated by Dr. Tobar for interpretation of deep and peripheral margins. The Mohs map was updated. Assistants: Eileen Null MA Amount of lidocaine used: 1.0 cc Estimated blood loss: <1.0 cc Defect size: 2.5 x 1.5 cm Number of blocks: 1 Number of positive blocks: 0 Tumor free margins were obtained and the Mohs procedure was considered complete. Tumor features identified on Mohs section: no tumor identified Depth of defect after stage: dermis Patient tolerance of procedure: tolerated well, no immediate complications Reconstruction: Was the defect reconstructed?: No Antibiotics: Were antibiotics given on the day of surgery? Yes When were antibiotics given? post-operative [facility] e No Panel Informationon 06-30 Type of biopsy: tangential Informed consent: discussed and consent obtained Informed consent comment: The risks and benefits of the biopsy were discussed. Risks include but are not limited to bleeding, infection, scarring, pain, and nerve damage. An opportunity to ask questions prior to the procedure was permitted and all questions were answered. Patient was prepped and draped in usual sterile fashion: area cleansed with alcohol. Anesthesia: the lesion was anesthetized in a standard fashion Anesthetic: 1% lidocaine w/ epinephrine 1-100,000 buffered w/ 8.4% NaHCO3 Instrument used: DermaBlade Hemostasis achieved with: electrodesiccation Outcome: patient tolerated procedure well Outcome comment: The specimen was placed in a prelabeled formalin container to be sent for pathology Post-procedure details: sterile dressing applied and wound care instructions given Post-procedure details comment: Emphasized need to contact clinic for any signs of infection, uncontrollable bleeding, or complications. Dressing type: bandage Additional details: Photo taken Amount of lidocaine used: 0.5 cc [employer] [facility] Type of biopsy: tangential Informed consent: discussed and consent obtained Informed consent comment: The risks and benefits of the biopsy were discussed. Risks include but are not limited to bleeding, infection, scarring, pain, and nerve damage. An opportunity to ask questions prior to the procedure was permitted and all questions were answered. Patient was prepped and draped in usual sterile fashion: area cleansed with alcohol. Anesthesia: the lesion was anesthetized in a standard fashion Anesthetic: 1% lidocaine w/ epinephrine 1-100,000 buffered w/ 8.4% NaHCO3 Instrument used: DermaBlade Hemostasis achieved with: electrodesiccation Outcome: patient tolerated procedure well Outcome comment: The specimen was placed in a prelabeled formalin container to be sent for pathology Post-procedure details: sterile dressing applied and wound care instructions given Post-procedure details comment: Emphasized need to contact clinic for any signs of infection, uncontrollable bleeding, or complications. Dressing type: bandage Additional details: Photo taken Amount of lidocaine used: 0.5 cc [employer] [place] 10-23-2020 [facility] Telephone (BRIONNA) JUDITH CRENSHAW ([id number]) 1955 Date Time Provider Department 10/23/20 KEYANNA ZAPATA) BRIONNA During your visit today, we recorded the following information about you: Keyanna Zapata RN 10/23/2020 4:58 PM Signed Patient called to state he has been having some issues with his hip (s/p L BHR 02/28/2011). Advised he call to schedule an appointment with Arnoldo Walker PA-C to have an XR and have it evaluated. Allergies As of Date: 10/23/2020 (No Known Allergies) Date Reviewed: 03/03/2011 Reviewed by: Joie WallerRn) SHARONA Solomon - Fully Assessed Reason for Visit: Patient Update [1234] Prescriptions as of 10/23/2020 Sig: ASPIRIN 325 MG TABLET,DELAYED* Take 1 tablet by mouth twice * ACETAMINOPHEN 325 MG TABLET Take 1-2 tablets by mouth joel* OXYCODONE 5 MG TABLET Take 1-2 tablets by mouth joel* OXYCODONE-ACETAMINOPHEN 5 MG-* Take 1-2 tablets by mouth joel* FERROUS SULFATE 325 MG (65 MG* Take 1 tablet by mouth twice * DOCUSATE SODIUM 100 MG CAPSULE Take 1 capsule by mouth twice* MAGNESIUM HYDROXIDE 400 MG/5 * Take 30 mL by mouth twice reece* MULTIVITAMIN TABLET Take 1 tablet by mouth once d* METAXALONE 800 MG TABLET Take 1 tablet by mouth three * Problem List As Of Date 10/23/2020 Noted Resolved Osteoarth NOS-other site [M19.90] 02/28/2011 Encounter Status:Closed by KEYANNA ZAPATA RN on 10/23/20 Normal [facility] Covid-19 PCR (CVDTB)on 04-26 Covid-19 PCR DETECTED Abnormal NOT DETECTED [facility] Comment on above: Result Comment: This test is not yet approved or cleared by the [place] FDA. When there are no FDA-approved or cleared tests available, and other criteria are met, FDA can make tests available under an emergency access mechanism called an Emergency Use Authorization (EUA). The EUA for this test is supported by the [place] of Health and Human Service's (HHS's) declaration that circumstances exist to justify the emergency use of in vitro diagnostics for the detection and/or diagnosis of the virus that causes COVID-19. This EUA will remain in effect (meaning this test can be used) for the duration of the COVID-19 declaration justifying emergency of IVDs, unless it is terminated or revoked by FDA (after which the test may no longer be used). Performed By: #### [facility] #### [facility] [address] [place] [address] Armida Hernandez EUA Statement SEE BELOW Normal The [facility] Comment on above: Result Comment: This test is not yet approved or cleared by the [place] FDA. When there are no FDA-approved or cleared tests available, and other criteria are met, FDA can make tests available under an emergency access mechanism called an Emergency Use Authorization (EUA). The EUA for this test is supported by the [place] of Health and Human Service?s (HHS?s) declaration that circumstances exist to justify the emergency use of in vitro diagnostics for the detection and/or diagnosis of the virus that causes COVID-19. This EUA will remain in effect (meaning this test can be used) for the duration of the COVID-19 declaration justifying emergency of IVDs, unless it is terminated or revoked by FDA (after which the test may no longer be used). When diagnostic testing is negative, the possibility of a false negative should be considered in the context of a patients recent exposures and the presence of clinical signs and symptoms consistent with SARS-CoV-2. Performed By: #### C [facility] #### [facility] [address] [place] [address] Armida Hernandez XR ANKLE LT MIN 3 Von 2019 XR ANKLE LT MIN 3 V PROCEDURE: XR ANKLE LT MIN 3 V, XR FOOT LT MIN 3 VIEWS COMPARISON: None. HISTORY: Pain of left ankle joint FINDINGS: BONES:No acute fracture or dislocation of the foot or ankle. Mild degenerative osteoarthropathy with joint space narrowing and marginal osteophyte formation most significant in the mid foot. Moderate enthesopathic spurring of the calcaneus. SOFT TISSUES:Negative. No visible soft tissue swelling. EFFUSION:None visible. OTHER: Negative. IMPRESSION: Mild degenerative osteoarthritis Electronically authenticated by: GARETH COREY Date: 2019-11-23 15:46 Normal [facility] BASIC METABOLIC PANELon 12-23 Calcium [Mass/Vol] 8.8 mg/dL Normal 8.6-10.3 [facility] Comment on above: Order Comment: No: D o not add to previous draw Performed By: #### 0 [id number] #### [facility] [address] [place] [address], [facility] Chloride [Moles/Vol] 105 mmol/L Normal 98-107 The [facility] Comment on above: Order Comment: No: D o not add to previous draw Performed By: #### 0 [id number] #### [facility] [address] [place] [address], [place] CO2 [Moles/Vol] 27 mmol/L Normal 21-31 The [facility] Comment on above: Order Comment: No: D o not add to previous draw Performed By: #### 0 [id number] #### [facility] [address] [place] [address], [place] Creatinine [Mass/Vol] 0.89 mg/dL Normal 0.70-1.30 [facility] Comment on above: Order Comment: No: D o not add to previous draw Performed By: #### 0 [id number] #### [facility] [address] [place] [address], [place] GFR/1.73 sq M predicted among blacks MDRD (S/P/Bld) [Vol rate/Area] mL/min/{1.73_m2} Normal >60 [facility] Comment on above: Order Comment: No: D o not add to previous draw Performed By: #### 0 [id number] #### [facility] [address] [place] [address], [place] GFR/1.73 sq M predicted among non-blacks MDRD (S/P/Bld) [Vol rate/Area] mL/min/{1.73_m2} Normal >60 [facility] Comment on above: Order Comment: No: D o not add to previous draw Performed By: #### 0 0071 #### [facility] [address] [place] [address], [place] Glucose [Mass/Vol] 121 mg/dL High 70-100 [facility] Comment on above: Order Comment: No: D o not add to previous draw Performed By: #### 0 0071 #### [facility] [address] [place] [address], [place] Potassium [Moles/Vol] 3.7 mmol/L Normal 3.5-5.1 [facility] Comment on above: Order Comment: No: D o not add to previous draw Performed By: #### 0 0071 #### [facility] [address] Sodium [Moles/Vol] 138 mmol/L Normal 136-145 [facility] Comment on above: Order Comment: No: D o not add to previous draw Performed By: #### 0 0071 #### [facility] [address] [facility] [address] Urea nitrogen [Mass/Vol] 13 mg/dL Normal 7-25 [facility] Comment on above: Order Comment: No: D o not add to previous draw Performed By: #### 0 0071 #### [facility] [address] CBC W/DIFFon 01-08-2019 ABS BASOPHILS 0.1 10*3/uL Normal 0.0-0.[address] [facility] Comment on above: Order Comment: No: D o not add to previous draw Performed By: #### 5 0103 #### [facility] [address] ABS IMM GRANS 0.0 10*3/uL Normal 0.0-0.[address] [facility] Comment on above: Order Comment: No: D o not add to previous draw Performed By: #### 5 0103 #### [facility] [address] ABS NEUTROPHILS 4.9 10*3/uL Normal 1.6-7.6 [facility] Comment on above: Order Comment: No: D o not add to previous draw Performed By: #### 5 0103 #### [facility] [address] Basophils/100 WBC (Bld) 0.7 % Normal 0.0-1.0 [facility] Comment on above: Order Comment: No: D o not add to previous draw Performed By: #### 5 0103 #### [facility] [address] [place] [address], [facility] Eosinophils (Bld) [#/Vol] 0.1 10*3/uL Normal 0.0-0.5 [facility] Comment on above: Order Comment: No: D o not add to previous draw Performed By: #### 5 0103 #### [facility] [address] [place] [address], [facility] Eosinophils/100 WBC (Bld) 1.7 % Normal 0.0-6.0 [facility] Comment on above: Order Comment: No: D o not add to previous draw Performed By: #### 5 0103 #### [facility] [address] [place] [id number], [facility] Erythrocyte distribution width (RBC) [Ratio] 13.0 % Normal 11.5-15.0 [facility] Comment on above: Order Comment: No: D o not add to previous draw Performed By: #### 5 0103 #### [facility] [address] [place] [id number], [facility] Hematocrit (Bld) [Volume fraction] 39.6 % Normal 39.0-50.0 [facility] Comment on above: Order Comment: No: D o not add to previous draw Performed By: #### 5 0103 #### [facility] [address] [place] [id number], [facility] Hemoglobin (Bld) [Mass/Vol] 13.3 g/dL Normal 13.0-17.0 [facility] Comment on above: Order Comment: No: D o not add to previous draw Performed By: #### 5 0103 #### [facility] [address] [place] [address], [place] IMMATURE GRANS 0.5 % Normal 0.0-1.0 [facility] Comment on above: Order Comment: No: D o not add to previous draw Performed By: #### 5 0103 #### [facility] [address] [place] [address], [facility] Lymphocytes (Bld) [#/Vol] 1.8 10*3/uL Normal 1.2-4.0 [facility] Comment on above: Order Comment: No: D o not add to previous draw Performed By: #### 5 0103 #### [facility] [address] [place] [address], [facility] Lymphocytes/100 WBC (Bld) 23.4 % Normal 20.0-45.0 [facility] Comment on above: Order Comment: No: D o not add to previous draw Performed By: #### 5 0103 #### [facility] [address] [place] [address], [facility] MCH (RBC) [Entitic mass] 28.7 pg Normal 27.0-33.0 [facility] Comment on above: Order Comment: No: D o not add to previous draw Performed By: #### 5 0103 #### [facility] [address] [facility] [place] [place] [address], [facility] MCHC (RBC) [Mass/Vol] 33.6 g/dL Normal 32.0-35.0 [facility] Comment on above: Order Comment: No: D o not add to previous draw Performed By: #### 5 0103 #### [facility] [address] [facility] [place] [place] [address], [facility] MCV (RBC) [Entitic vol] 85.5 fL Normal 82.0-98.0 [facility] Comment on above: Order Comment: No: D o not add to previous draw Performed By: #### 5 0103 #### [facility] [address] [place] [address], [facility] Monocytes (Bld) [#/Vol] 0.7 10*3/uL Normal 0.1-1.0 [facility] Comment on above: Order Comment: No: D o not add to previous draw Performed By: #### 5 0103 #### [facility] [address] [place] [address], [place] MONOS 9.0 % Normal 5.0-12.0 [facility] Comment on above: Order Comment: No: D o not add to previous draw Performed By: #### 5 0103 #### [facility] [address] [place] [address], [place] Neutrophils/100 WBC (Bld) 64.7 % Normal 40.0-72.0 [facility] Comment on above: Order Comment: No: D o not add to previous draw Performed By: #### 5 0103 #### [facility] [address] [place] [address], [place] Nucleated RBC/100 WBC (Bld) [Ratio] 0 % Normal 0-0 [facility] Comment on above: Order Comment: No: D o not add to previous draw Performed By: #### 5 0103 #### [facility] [address] [place] [address], [place] PLAT CNT 224 10*3/uL Normal 150-400 [facility] Comment on above: Order Comment: No: D o not add to previous draw Performed By: #### 5 0103 #### [facility] [address] [place] [address], [place] RBC (Bld) [#/Vol] 4.63 10*6/uL Normal 4.20-5.70 [facility] Comment on above: Order Comment: No: D o not add to previous draw Performed By: #### 5 0103 #### [facility] [address] [place] [address], [place] WBC (Bld) [#/Vol] 7.56 10*3/uL Normal 4.00-10.60 [facility] Comment on above: Order Comment: No: D o not add to previous draw Performed By: #### 5 0103 #### [facility] [address] [place] [address], [facility] POC GLUCOSE LABon 01-08-2019 Glucose [Mass/Vol] 152 mg/dL High 70-100 [facility] Comment on above: Performed By: #### 8 5499 #### [facility] [address] [place] [address], [place] Glucose [Mass/Vol] 149 mg/dL High 70-100 [facility] Comment on above: Performed By: #### 8 5499 #### [facility] [address] [place] [address], [facility] History and Physicalon 01-07 History and Physical MR#: [id number] [facility] Pt. Name: Judith Crenshaw Admitted: 01/07/2019 Date of : 1955 Attending Physician: Michelle Paez MD Room #: [id number] Discharge Date: HISTORY AND PHYSICAL CHIEF COMPLAINT: Chest pain. HISTORY OF PRESENT ILLNESS: This is a 63-year-old male with past medical history of hypertension, diabetes, and dyslipidemia, who presented with chest pain over 2 weeks. The patient has been having intermittent episodes of chest pain with palpitations and shortness of breath as well as diaphoresis. His symptoms occurred primarily with exertion. He was seen as outpatient and had stress test, which turned to be positive. The patient was scheduled to have angiogram next Thursday. However, he was seen by Dr. iSngh from Cardiology, who sent him for coronary angiogram today. The patient is status post coronary angiogram with PCI of the LAD. The patient feels comfortable at present. He denied any chest pain at present or shortness or breath. He said he was supposed to start on medications for diabetes and hypertension by his primary care physician. He was taking aspirin as well as metformin and simvastatin at home. He denied any history of drinking or illicit drug use. He quit smoking 20 years ago. He lives with his . PAST MEDICAL HISTORY: Hypertension, diabetes, dyslipidemia, and morbid obesity. PAST SURGICAL HISTORY: heart catheterization. ALLERGIES: None. CURRENT MEDICATIONS: Aspirin, metoprolol, and simvastatin. FAMILY HISTORY: Father has diabetes. REVIEW OF SYSTEMS: CONSTITUTIONAL: No history of weight loss, change in appetite. No fever. No chills. No night sweats. HEAD AND NECK: No headache, facial pain, neck pain, or stiffness. EYES: No change in vision, photophobia, or recent eye infection. EARS: No loss of hearing, tinnitus, recent ear infection, ear surgeries, or vertigo. NOSE: No recent upper respiratory tract infection, change in ability of smell, postnasal drip, or epistaxis. MOUTH AND THROAT: No change in taste, sore throat, difficulty swallowing, or voice change. CARDIOVASCULAR: As per HPI. RESPIRATORY: No cough or sputum production. No history of asthma or wheezing. No hemoptysis. GASTROINTESTINAL: No history of abdominal pain. No nausea. No vomiting. No heartburn or peptic ulcer. No rectal bleeding or black stools. GENITOURINARY: No change in the bladder or bowel habits. No urgency, frequency, or incontinence. SKIN: No change in the color of the skin. No new rashes. MUSCULOSKELETAL: No joint pain, stiffness, or swelling. No muscle pain or weakness. NEUROLOGIC: No history of headache, paralysis, numbness or tingling of extremities. No change in sensation or gait instability. PSYCHIATRY: No disturbance in sleep. No history of prior treatment of psychiatric illness or hospitalization. HEMATOLOGY/LYMPHATIC: No history of bleeding or bruising tendency. No enlarged glands or lymphedema. No history of prior blood transfusion. PHYSICAL EXAMINATION: GENERAL APPEARANCE: A well-developed, not in acute distress. HEENT: Head is normocephalic and atraumatic. Eyes, bilaterally pupils equally reacting to light and accommodation. Extraocular movements are intact. Bilateral conjunctivae are clear. No pallor. No proptosis. No enophthalmos. ENT, bilateral external ears are normal. Bilateral ear canals are clear. Both tympanic membranes are intact. Nasal mucosa moist. No congestion. Oropharynx is clear. NECK: Trachea appears to be in the midline. No lymphadenopathy. JVD not visible. Neck movements are normal. No carotid bruit. CHEST: Chest wall appears to be symmetric. No rash. No visible pulsation. Chest wall equally moves with respiration. HEART: S1 and S2 heard. Regular rate and rhythm. No S3. No S4. No murmurs, rubs, or gallops. LUNGS: Clear to auscultation on both anterior and posterior lung joiner. Respirations are regular. No wheezing or rales. ABDOMEN: Soft. No tenderness. Bowel sounds active. No mass palpable. Bilateral inguinal orifice clear. BACK: Spinal curvature normal. No kyphoscoliosis. Spinal movements are normal. No CVA tenderness. EXTREMITIES: All 4 extremities appear normal. No pedal edema. No nail clubbing. SKIN: No rash or skin discoloration. NEUROLOGIC: Alert and oriented x3. Speech is normal. Cranial nerves II to XII are intact. Motor strength 6/6 in both upper and lower extremities. Reflexes are 2+ bilaterally. Peripheral pulses 2+ bilaterally throughout. PSYCHIATRIC: Mood and judgment appears to be good. No suicidal ideation or intention. Memory appears to be good. Affect is normal. DIAGNOSTIC TESTS: The patient had lab studies done on January 07, which showed WBC of 6.5, hemoglobin 14.4, hematocrit 41.8, and platelets of 201. His basic metabolic panel showed BUN of 14, creatinine of 0.8, potassium 3.9, sodium 140, and total bilirubin of 0.39, glucose 139. ASSESSMENT AND PLAN: The patient will be admitted to the step-down unit. 1. Unstable angina, status post coronary angiogram with PCI and stenting of the left anterior descending artery. The patient was seen post catheterization, feeling comfortable without complaining of chest pain or shortness of breath. He still had the wrist band in place. We will wean per protocol. The patient was started by Cardiology on aspirin, Brilinta, metoprolol, and atorvastatin. We will keep him on telemetry for tonight. We will repeat his labs and get EKG in the morning. He will need to start cardiac rehab phase 1 in the hospital and phase 2 upon discharge. Follow up with Cardiology. 2. Hypertension. The patient was reportedly planned to start blood pressure medication as outpatient by his PCP. His blood pressure currently is well controlled. He is on the metoprolol 25 mg b.i.d. We will continue the same and monitor blood pressure. 3. Diabetes. Recent hemoglobin A1c is 6.6. The patient was planned to start on metformin 850 b.i.d. by his PCP as outpatient. However, since he received contrast with coronary angiogram, I will hold on metformin for now and I start him on sliding scale as well as ADA diet. 4. Dyslipidemia. The patient's recent lipid profile showed total cholesterol of 219 with LDL of 151, HDL 40, and triglycerides of 142. The patient was started on atorvastatin 80 mg. He will need a repeat lipid profile as outpatient. 5. Deep venous thrombosis prophylaxis. We will use SCDs for now. Hold on anticoagulation since he has arterial puncture for angiogram. Encouraged ambulation. GI prophylaxis, not indicated. 6. Disposition, home. 7. Code status, full. 8. Plan of care was discussed with the patient and his . Electronically Signed by: Michelle Paez MD 01/08/2019 07:24 P Michelle Paez MD Date Dict: 01/07/2019/08:11 P/Michelle Paez MD Date Trans: 01/07/2019 09:13 P/nils [id number] Normal [facility] Vital Signs Date Time Vital Sign Value Performing Clinician Kathy pisano 03-17-2024 15: Body height 172.7 cm Kelly Reynoso MD Work Phone: [facility] 03-17-2024 15:040 Body mass index (BMI) [Ratio] 41.48 kg/m2 Kelly Reynoso MD Work Phone: [facility] 03-17-2024 15: Body weight 123.74 kg Kelly Reynoso MD Work Phone: [facility] 03-17-2024 15:17040 Diastolic blood pressure 56 mm[Hg] Kelly Reynoso MD Work Phone: [facility] 03-17-2024 15:17040 Heart rate 79 /min Kelly Reynoso MD Work Phone: [facility] 03-17-2024 15:170400 SaO2% (BldA) [Mass fraction] 96 % Kelly Reynoso MD Work Phone: [facility] 03-17-2024 15:17-0400 Systolic blood pressure 102 mm[Hg] Kelly Reynoso MD Work Phone: [facility] 07-09-2023 08:35-0500 Diastolic blood pressure 90 mm[Hg] Mateus Tobar MD Work Phone: [facility] 07-09-2023 08:35-0500 Systolic blood pressure 170 mm[Hg] Mateus Tobar MD Work Phone: [facility] Encounters Encounter Date Encounter Type Care Provider Facility Start: 03-23-2024 End: 03-23-2024 ambulatory [facility] Start: 03-23-2024 End: 03-23-2024 Encounter for other preprocedural examination [facility] Start: 03-17-2024 End: 03-17-2024 Office outpatient visit 25 minutes Kelly Reynoso MD Work Phone: [facility] Comment on above: Preoperative clearan ce (Primary Dx); Statin myopathy; History of colon polyps; Coronary artery disease involving nome coronary artery of nome heart without angina pectoris ([facility]/HCC); Type 2 diabetes mellitus without complication, without long-term current use of insulin ([facility]); Non-compliance Start: 03-17-2024 End: 03-17-2024 Preoperative state Kelly Reynoso MD Work Phone: [facility] Start: 03-17-2024 End: 03-17-2024 ambulatory KELLY REYNOSO Not Available Start: 03-17-2024 End: 03-17-2024 Bamboo flowsheet Kelly Reynoso MD Work Phone: [facility] Start: 03-17-2024 End: 03-17-2024 Bamboo flowsheet Kelly Reynoso MD Work Phone: [facility] Start: 03-11-2024 End: 03-11-2024 Telephone encounter Kelly Reynoso MD Work Phone: [facility] Start: 12-17-2023 End: 12-17-2023 ambulatory ALAYNA BHAKTA Not Available Start: 07-09-2023 Bamboo flowsheet Mateus del cid MD Work Phone: [facility] Start: 07-09-2023 Bamboo flowsheet Mateus del cid MD Work Phone: [facility] Start: 07-09-2023 End: 07-09-2023 Patient encounter procedure Mateus Tobar MD Work Phone: [facility] Comment on above: Basal cell carcinoma (BCC) of skin of right ear (Primary Dx) Start: 07-09-2023 End: 07-09-2023 ambulatory MATEUS TOBAR Not Available Start: 06-30-2023 End: 06-30-2023 ambulatory ELIZABETH A FELTER Not Available Start: 06-30-2023 End: 06-30-2023 Office outpatient new 30 minutes Elizabeth A Felter JOURNEYMAN SHE[employer] METAL WORKER-DIVISION ORDER TECHNICIAN Work Phone: [facility] Comment on above: Other seborrheic fito matitis (Primary Dx); Neoplasm of unspecified behavior of bone, soft tissue, and skin Start: 06-30-2023 Bamboo flowsheet Elizabeth A Fel ter JOURNEYMAN SHEET METAL WORKER-DIVISION ORDER TECHNICIAN Work Phone: [facility] Start: 06-30-2023 Bamboo flowsheet Elizabeth A Fel ter JOURNEYMAN SHEET METAL WORKER-DIVISION ORDER TECHNICIAN Work Phone: [facility] Start: 06-16-2023 Telephone encounter Cammie Juárez JOURNEYMAN SHEET METAL WORKER-DIVISION ORDER TECHNICIAN Work Phone: [facility] Start: 06-15-2023 End: 06-15-2023 ambulatory BRITTANIE G ROLANDO Not Available Start: 04-29-2023 End: 04-29-2023 ambulatory BRITTANIE G ROLANDO Not Available Start: 05-24-2020 End: 05-24-2020 Patient encounter procedure FRANCOIS YING Facility:[facility] Start: 12-14-2019 Patient encounter procedure EDDIE HINKLE Facility:[facility] Start: 12-02-2019 End: 12-03-2019 Patient encounter procedure CASEY QUINTERO Facility:[facility] Start: 11-23-2019 End: 11-24-2019 Patient encounter procedure GARETH COREY Facility: Start: 01-07-2019 End: 01-08-2019 Evaluation and management of inpatient PHYSICIAN UNKNOWN Facility:[facility] Procedures Date Procedure Procedure Detail Performing Clinician Start: 07-09-2023 [facility] Mateus stack MD Work Phone: Start: 06-30-2023 End: 06-30-2023 SKIN / NAIL BIOPSY Elizabeth Mark Zunigat[place] APR N-DIVISION ORDER TECHNICIAN Work Phone: Start: 07-01-2018 Colonoscopy Elizabeth broderick JOURNEYMAN SHE[employer] METAL WORKER-DIVISION ORDER TECHNICIAN Work Phone: Plan of Treatment Date Care Activity Detail Author Start: 07-01-2028 Screening for malignant neoplasm of colon [facility] Start: 06-30-2024 End: 06-30-2024 Patient encounter procedure 06/30/2024 3:55 PM EST Office Visit [facility] [address] [place] [address] Elizabeth Sheth, JOURNEYMAN SHE[employer] METAL WORKER-DIVISION ORDER TECHNICIAN [address] [place] [address] [facility] Start: 06-15-2024 Urine screening for protein Diabetes: Urine Protein Screening [facility] Start: 04-29-2024 Pneumococcal Vaccine: 65+ Years (1 - PCV) Pneumococcal Vaccine: 65+ Years (1 - PCV) [facility] Comment on above: Postponed from 11/10/1963 (Patient Refus ed) Start: 04-29-2024 Pneumococcal Vaccine: 65+ Years (1 of 2 - PCV) Pneumococcal Vaccine: 65+ Years (1 of 2 - PCV) [facility] Comment on above: Postponed from 11/10/1963 (Patient Refus ed) Start: 03-17-2024 End: 03-17-2024 Patient encounter procedure 03/17/2024 3:30 PM EDT Office Visit [facility] [address] [place] [address] Kelly Reynoso MD [address] [place], [place] [id number] Arrived [facility] Comment on above: Arrived Start: 03-14-2024 End: 03-14-2024 Patient encounter procedure 03/14/2024 4:30 PM EDT Office Visit [facility] [address] [place] [id number] Renetta Munoz NP [address] [place] [address] [facility] Start: 01-24-2024 Influenza vaccination Influenza Vaccine (#1) [facility] Start: 09-14-2023 Hemoglobin A1c measurement Diabetes: Hemoglobin A1C [facility] Start: 07-09-2023 End: 07-09-2023 Patient encounter procedure 07/09/2023 8:30 AM EST Office Visit [facility] [address] [place] [phone] Mateus Tobar MD [address] [place] [address] Arrived [facility] Comment on above: Arrived Start: 2022 Fall Risk Screening Fall Risk Screening [facility] Start: 05-28-2022 Glaucoma screening Diabetes: Retinopathy Screening [facility] Start: 11-10-2007 Administration of varicella zoster vaccine Zoster (Shingles) Vaccine (1 of 2) [facility] Start: 1976 DTaP,Tdap and Td Vaccines (1 - Tdap) DTaP,Tdap and Td Vaccines (1 - Tdap) [facility] Start: 11-10-1975 Adult BMI Screening Adult BMI Screening [facility] Start: 1969 Depression Screening Depression Screening [facility] Start: 1969 Tobacco Screening Tobacco Screening [facility] Start: 1955 Screening for malignant neoplasm of colon [facility] Dermatopathology exam Dermatopat hology exam Pathology and Cytology Timed Neoplasm of unspecified behavior of bone, soft tissue, and skin Release Upon Ordering for 1 Occurrences starting 06/30/2023 [facility] Work Phone: Comment on above: Release Upon Ordering for 1 Occurrences starting 06/30/2023 Immunizations Immunization Date Immunization Notes Care Provider Fa masood 02-22-2023 influenza, seasonal, injectable Elizabeth Sheth JOURNEYMAN SHE[employer] METAL WORKER-DIVISION ORDER TECHNICIAN Work Phone: [facility] 02-22-2023 influenza virus vacc ine, unspecified formulation Kelly Reynoso MD Work Phone: [facility] 02-07-2020 influenza, injectabl e, quadrivalent, preservative free Elizabeth Sheth JOURNEYMAN SHEET METAL WORKER-DIVISION ORDER TECHNICIAN Work Phone: [facility] 02-23-2018 seasonal influenza, intradermal, preservative free Elizabeth Felttonia JOURNEYMAN SHEET METAL WORKER-DIVISION ORDER TECHNICIAN Work Phone: [facility] 02-23-2017 seasonal influenza, intradermal, preservative free Elizabeth Felttonia JOURNEYMAN SHEET METAL WORKER-DIVISION ORDER TECHNICIAN Work Phone: [facility] Payers Date Payer Category Payer Private Health Insurance [id number] 2022 Unknown [employer] [id number] 2022-Present [phone] [address] [address] [place] [address] [id number] 2022 Unknown [id number] 1959 Unknown [id number] 1955 Unknown [id number] [id number]. 2.647 1957 Unknown [id number] [id number]. 2.593 1957 Unknown [id number] 2.16.840.1.328489.3.579. 2.593 1957 Unknown [id number] 2.16.840.1.456357.3.579. 2.593 1957 Unknown [id number] 2.16.840.1.079206.3.579. 2.593 1957 Unknown [id number] 2.16.840.1.526900.3.579. 2.1259 1957 Unknown [id number] 2.16.840.1.626131.3.579. 2.9 1957 Unknown [id number] 2.16.840.1.656099.3.579. 2.1258 1957 Unknown [id number] 2.16.840.1.798299.3.579. 2.9 1957 Unknown [id number] 2.16.840.1.950808.3.579. 2.1258 1957 Unknown [id number] [id number]. 2.1259 Social History Date Type Detail Facility Start: 01-06-2019 End: 03-17-2024 Tobacco smoking status NHIS Ex-smoker [facility] End: 05-25-2004 History of tobacco use Current smoker [facility] Start: 01-06-2019 End: 03-17-2024 Tobacco use and exposure Smokeless tobacco non-user [facility] Start: 01-06-2019 Alcohol intake Current non-drinker of alcohol (finding) [facility] [facility] Start: 07-01-2018 End: 03-17-2024 History of Social function [facility] Start: 07-01-2018 End: 03-17-2024 Alcohol Use Disorder Identification Test - Consumption [AUDIT-C] [facility] Frequency of Alcohol Consumption Never [facility] Start: 1955 Sex Assigned At Not on file [facility] End: 05-25-2004 History of tobacco use Cigarette Smoker [facility] Start: 06-15-2023 End: 07-09-2023 Alcohol intake Current drinker of alcohol (finding) [facility] How often to you hav e a drink containing alcohol? Monthly or less [facility] How often do you hav e 6 or more drinks on 1 occasion? Never [facility] Start: 05-12-2023 Alcohol Comment caffeine: 1-2 cups per day [facility] Start: 03-17-2024 Alcoholic beverage intake Ex-drinker (finding) [facility] Clinical Notes 06-16-2023 to 03-23-2024 Kelly Reynoso MD - 03/17/2024 3:30 PM EDTTelephone Encounter - Brendan Leyva - 03/11/2024 10:09 AM EDTTelephone Encounter - Brendan Leyva - 03/11/2024 10:09 AM EDT Note Date & Type Note Facility 03-23-[address] Cardiology - [facility] Subjective Judith Crenshaw is a 68 y.o. year old male patient being seen for cardiac clearance for carpal tunnel surgery. Patient Active Problem List Diagnosis Abnormal nuclear stress test Carpal tunnel syndrome Chronic venous insufficiency Coronary arteriosclerosis Diabetes mellitus (CMS/HCC) Diverticulosis Dyspnea on exertion Hearing loss Hypertension Light headed Mixed hyperlipidemia Morbid obesity (CMS/HCC) RADHA (obstructive sleep apnea) Osteoarthritis Racing heart beat Umbilical hernia Acute bilateral low back pain with left-sided sciatica Benign prostatic hyperplasia with lower urinary tract symptoms Bilateral varicoceles Chronic anal fissure Claustrophobia History of left hip replacement Lipoma of right thigh Lumbago with sciatica, left side Other chronic pain Other obstructive and reflux uropathy Sensorineural hearing loss of both ears Stented coronary artery Type 2 diabetes mellitus without complication, without long-term current use of insulin (CMS/HCC) Uses hearing aid Family History Problem Relation Name Age of Onset Heart attack Paternal Grandmother Heart attack Paternal Grandfather Social History Tobacco Use Smoking status: Former Types: Cigarettes Quit date: 1998 Years since quittin.8 Smokeless tobacco: Never Substance Use Topics Alcohol use: Yes Comment: occasional HPI 03/23/2024 Patient was not seen in the cardiology office since 07/14/2022. He had history of coronary artery disease and prior angioplasty. Also has history of hypertension, hyperlipidemia, diabetes mellitus, obesity and sleep apnea. Next line he is not taking any of his medications. He stopped aspirin for the surgery. He does not take atorvastatin because he said it caused joint pains. He was taken off beta-lowell last visit due to sinus bradycardia. He declined to be on any other antihypertensive medications. 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 He denies any chest pain or shortness of breath at rest or with exertion. Denies orthopnea or paroxysmal nocturnal dyspnea or dizziness or palpitations. He admits mild legs edema which she states is chronic since he was young. He admits sleep apnea however he could not tolerate CPAP. He states that he checks his blood pressure every once a while and is usually in the 130s over 80s. He states that his HbA1c has been climbing. He is planning to follow diet and lose weight in order to get it under control He denies smoking, alcohol or illicit drug 07/14/2022 He is a 66-year-old man known to have history of diabetes. He in 2019 started having symptoms of chest pain on mild exertion. He underwent a stress test that showed multiple areas of ischemia. He was referred for cardiac catheterization on January 07, 2019. He was found to have severe stenosis of the LAD which was treated by a KonTEM drug-eluting stent. He did well after the procedure. At a prior visit I stopped metoprolol due to bradycardia. He had COVID on 05/24/2020. He has been free from chest pain and much better breathing. He is currently taking aspirin and atorvastatin 80 mg daily. He is reluctant to be placed on any antihypertensive medications or antidiabetic medications. He believes he can control his diabetes and hypertension with lifestyle modification and weight loss. Objective Visit Vitals BP 134/72 (BP Location: Left arm, Patient Position: Sitting) Pulse 59 Ht 1.778 m (5' 10 ) Wt 123 kg (272 lb) SpO2 97% BMI 39.03 kg/m??? Smoking Status Former BSA 2.46 m??? Physical Exam Constitutional: Appearance: He is well-developed. He is obese. He is not ill-appearing. HENT: Head: Normocephalic and atraumatic. Nose: Nose normal. Eyes: General: No scleral icterus. Pupils: Pupils are equal, round, and reactive to light. Neck: Thyroid: No thyromegaly. Vascular: No JVD. Cardiovascular: Rate and Rhythm: Regular rhythm. Bradycardia present. Pulses: Radial pulses are 2+ on the right side and 2+ on the left side. Heart sounds: Normal heart sounds. No murmur heard. No friction rub. No gallop. Pulmonary: Effort: Pulmonary effort is normal. No respiratory distress. Breath sounds: Normal breath sounds. No wheezing or rales. Chest: Chest wall: No tenderness. Abdominal: General: Bowel sounds are normal. There is no distension. Palpations: Abdomen is soft. Tenderness: There is no abdominal tenderness. Musculoskeletal: General: Swelling (Trace bilateral, varicose veins noted) present. Cervical back: Neck supple. Skin: General: Skin is warm and dry. Neurological: General: No focal deficit present. Mental Status: He is alert and oriented to person, place, and time. Psychiatric: Mood and Affect: Mood (more content not included)... [facility] 03-17-2024 History of Present illness Narrative Images from the original note were not included. Judith Crenshaw is a 68 y.o. male presents with chief complaint of Establish Care (03/28 left wrist 04/11 right wrist severe carpel tunnel. Dr rafiq matthews in [place] Surgery is is being done at [facility]. ) [facility]: [facility] in [place] History of Present Illness The patient presents for preoperative clearance. He is scheduled for carpal tunnel surgery on 03/28/2024 for the left hand and 04/11/2024 for the right hand. He has a history of a stent placement in 2014 due to a 99 percent blockage in his artery but has had no issues since then. He has been prescribed blood pressure and diabetes medications, as well as atorvastatin, which he stopped taking four months ago. His A1c was 7.4 at his last check-up. He does have diabetes but acknowledges That he does not take any medications He has experienced muscle soreness and increased urination, which he believes are side effects of his cholesterol medication. He is concerned about potential side effects of medication. He will consider treatment of these issues after the first of the year. He is actively trying to lose weight and has seen some success, dropping from 290 to 272 pounds. He attributes some of his weight issues to late dinners and early bedtimes. He had a hip replacement in 2010 and experiences joint pain when exerting himself. He also has sleep apnea and experiences frequent urination, which disrupts his sleep. He has a history of colon polyps and is due for a colonoscopy. He also has hemorrhoids, which he manages with good hygiene practices. He recently experienced pain in his kidney area, which he suspects may be due to heavy lifting or a kidney stone. SOCIAL HISTORY He is getting ready to retire in 08/2023. He quit smoking. IMMUNIZATIONS He took COVID-19 vaccine. SUBJECTIVE: MEDICATIONS: Current Outpatient Medications Medication Instructions atorvastatin (LIPITOR) 80 mg, Oral, Daily RT cephalexin (Keflex) 500 MG capsule Take 1 capsule, by mouth, bid, 10 days fluocinolone ([place]-Smoothe/FS Body) 0.01 % external oil Topical, 3 times daily fluocinonide (Lidex) 0.05 % external solution Apply to affected areas on the scalp, up to twice a day when flared, 30 day supply I have reviewed and reconciled the history and medication list with the patient today. REVIEW OF SYMPTOMS: Review of Systems OBJECTIVE: Visit Vitals BP 102/56 Pulse 79 Ht 5' 8 Wt 272 lb 12.8 oz SpO2 96% BMI 41.48 kg/m Smoking Status Former BSA 2.44 m Physical Exam Vitals and nursing note reviewed. Constitutional: Appearance: Normal appearance. HENT: Head: Normocephalic and atraumatic. Right Ear: Tympanic membrane normal. Left Ear: Tympanic membrane normal. Nose: Nose normal. Mouth/Throat: Mouth: Mucous membranes are moist. Pharynx: Oropharynx is clear. Cardiovascular: Rate and Rhythm: Normal rate and regular rhythm. Pulses: Normal pulses. Heart sounds: Normal heart sounds. Pulmonary: Effort: Pulmonary effort is normal. Breath sounds: Normal breath sounds. Musculoskeletal: Cervical back: Normal range of motion and neck supple. Skin: General: Skin is warm. Neurological: General: No focal deficit present. Mental Status: He is alert. Psychiatric: Mood and Affect: Mood normal. ASSESSMENT AND PLAN: Assessment & Plan 1. Preoperative clearance. He is scheduled for carpal tunnel surgery on 03/28/2024 for the left hand and 04/11/2024 for the right hand. His LDL cholesterol was recorded at 109 in May 2023. The chest x-ray results are satisfactory. His hemoglobin levels are within the normal range. There is no evidence of pitting edema. His glucose level was 149 at the time of the lab test. His wire stripper will be informed about his visit today. The wire stripper will determine if he is fit for surgery based on his heart condition. 2. Diabetes Mellitus. His A1c was 7.4 recently, indicating poorly controlled diabetes. He has been managing his diabetes through diet. He is advised to consider medication to protect his pancreas and delay the need for insulin. If he decides to start medication, it will be at the lowest dosage possible. He is encouraged to continue weight loss efforts and monitor his blood sugar levels at home. 3. Hyperlipidemia. He previously took atorvastatin but stopped 4 months ago due to side effects. His cholesterol levels will be re-evaluated after his surgeries. He is advised to discuss any new medication with the provider and start at the lowest dosage if needed. 4. Sleep Apnea. He has sleep apnea but does not currently use a CPAP machine. He is advised to clean and start using his CPAP machine to improve his sleep quality. 5. Health Maintenance. He is due for a colonoscopy, which will be scheduled. He has a hemorrhoid that should be evaluated during the colonoscopy to rule out any malignancy. Assessment/Plan Problem List Items Addressed This Visit Coronary artery disease (CMS/HCC) Type 2 diabetes mellitus without complication, without long-term current use of insulin (CMS/HCC) Other Visit Diagnoses Preoperative clearance - Primary He has untreated DM, but the A1c is running in the mid 7 range. He understands this could complicate wound healing. May consider treatment in the near future. No addditional work up needed from me prior to surery. He is seeing his wire stripper for cardiac clearnace. Statin myopathy History of colon polyps Relevant Orders Ambulatory referral to General Surgery Non-compliance documented in this encounter [facility] 03-11-2024 Telephone encounter Note Pt was Rolando pt and chose Renetta as MECHANICAL DEVELOPER [employer]OVER I scheduled an appt for him for Wednesday 03/14 at 430 for an EKG and blood work (because pt said he's getting carpal tunnel surgery) Renetta had me call him back to see if this appt is for Surgical Clearance. If so, Dr Reynoso has to do that, not Renetta. So, I called pt but had to leave a vm for him to call back. I told him he can ask for me :) If I'm unavailable, we need to reschedule him, if its surgical clearance and put him with dr reynoso. :) If it's not surgical clearance, we need to put him a little bit earlier so he can get his labs done too. [facility] 03-11-2024 Miscellaneous Notes Pt was Rolando pt and chose Renetta as MECHANICAL DEVELOPER [employer]OVER I scheduled an appt for him for Wednesday 03/14 at 430 for an EKG and blood work (because pt said he's getting carpal tunnel surgery) Renetta had me call him back to see if this appt is for Surgical Clearance. If so, Dr Reynoso has to do that, not Renetta. So, I called pt but had to leave a vm for him to call back. I told him he can ask for me :) If I'm unavailable, we need to reschedule him, if its surgical clearance and put him with dr reynoso. :) If it's not surgical clearance, we need to put him a little bit earlier so he can get his labs done too. documented in this encounter [facility] 07-09-2023 History of Present illness Narrative Images from the original note were not included. Mohs Surgery Location: Right ear Date of biopsy: 06/30/2023 Diagnosis: Basal Cell Carcinoma Established patient All pertinent medical history, medications, and allergies were reviewed. General Exam: alert , oriented to person, place, and time , normal affect, well appearing Unaccompanied A focused exam completed based on patient reported problems, see below: 1. Basal cell carcinoma (BCC) of skin of right ear Right ear Erythematous macule at the biopsy site Mohs surgery Consent obtained: written (The rationale for Mohs as well as the risks, benefits, and alternatives. The risks of infection, scarring, bleeding, prolonged wound healing, incomplete removal, allergy to anesthesia or meds, nerve injury, and recurrence were addressed.) [place] Protocol: Procedure explained and questions answered to patient or proxy's satisfaction: Yes Test results available and properly labeled: Yes Pathology report reviewed: Yes Photo or diagram used for site identification: Yes Site/side marked: Yes Anticoagulation: Is the patient taking prescription anticoagulant and/or aspirin prescribed/recommended by a physician? Yes (81 mg aspirin) Was the anticoagulation regimen changed prior to Mohs? No Anesthesia: Anesthesia method: local infiltration Local anesthetic: lidocaine 1% WITH epi and sodium bicarbonate Procedure Details: Biopsy accession number: [id number] Biopsy lab: [facility] Date of biopsy: 06/30/2023 Frozen section biopsy performed: Yes Specimen debulked: No Pre-Op diagnosis: basal cell carcinoma BCC subtype: infiltrative and nodular MohsAIQ Surgical site (if tumor spans multiple areas, please select predominant area): ear Surgery side: right Surgical site (from skin exam): Right ear Pre-operative length (cm): 0.8 Pre-operative width (cm): 0.8 Indications for Mohs surgery: anatomic location where tissue conservation is critical and aggressive histology Previously treated? No Mohs Appropriate Use Criteria Score: 8 Details of micrographic surgery: Mohs accession number: [id number] Micrographic Surgery Details: Post-operative length (cm): 2.5 Post-operative width (cm): 1.5 Number of Mohs stages: 2 Stage 1 Comments: The area was prepped with Betadine, draped in a sterile fashion, and infiltrated with local anesthetic. Sterile technique was used throughout the procedure. The marked area of clinical tumor with a small rim of clinically normal surrounding skin was removed using Mohs technique with beveled edges. Hash maloney were placed for orientation of the specimen. Hemostasis was achieved with electrodessication. After hemostasis, the defect was measured and recorded, a temporary sterile dressing was placed over the wound, and the patient was escorted to the waiting area. The specimen was oriented, mapped, and if necessary, divided into sections. A Mohs map was prepared. The specimen was placed in a labeled maged dish and was taken to the Mohs lab where it was chromacoded and processed. Mohs sections were prepared with serial tissue sections, stained, and evaluated by Dr. Tobar for interpretation of deep and peripheral margins. The Mohs map was marked accordingly. Amount of lidocaine used: 3.0 cc Estimated blood loss: <1.0 cc Defect size: 1.6 x 1.5 cm Number of blocks per stage: 1 Number of positive blocks: 1 Tumor features identified on Mohs section: basal carcinoma Tumor features identified on Mohs section comment: nodular Depth of defect after stage: dermis Stage 2 Comments: The patient returned to the procedure room, the dressing was remove, the tumor area was re-prepped and draped, and anesthesia was assessed and augmented as necessary. A layer of tissue around the positive margin(s) was removed, and the tissue was oriented, mapped, and processed in an identical fashion as for Stage 1. Hemostasis was achieved and dressing placed as in Stage 1. The patient was escorted to the waiting area. As with Stage 1, Mohs sections were prepared with serial tissue sections, stained, and evaluated by Dr. Tobar for interpretation of deep and peripheral margins. The Mohs map was updated. Assistants: Eileen Null MA Amount of lidocaine used: 1.0 cc Estimated blood loss: <1.0 cc Defect size: 2.5 x 1.5 cm Number of blocks: 1 Number of positive blocks: 0 Tumor free margins were obtained and the Mohs procedure was considered complete. Tumor features identified on Mohs section: no tumor identified Depth of defect after stage: dermis Patient tolerance of procedure: tolerated well, no immediate complications Reconstruction: Was the defect reconstructed?: No Antibiotics: Were antibiotics given on the day of surgery? Yes When were antibiotics given? post-operative cephalexin (Keflex) 500 MG capsule Take 1 capsule, by mouth, bid, 10 days Mohs Post Operative Type of repair: Strongly recommended repair by ENT. Pt. Will consider this and call Dr. Bergeron's office if he decides to proceed with repair. Reviewed benefits, risks, and possible outcomes of both secondary intention healing and repair. Wound Care: A dressing was placed on the surgical wound. Post-operative instructions were given in writing and were reviewed with the patient. A follow-up appointment as made, and instructions were given to follow-up sooner if necessary. Next visit: 1 year documented in this encounter [facility] 06-30-2023 History of Present illness Narrative Images from the original note were not included. Lesion(s) Location: right ear Duration: year and half Quality: denies pain, denies itch, denies bleeding Modifying factors: none Associated symptoms: red, scabbed, bump Treatments: none Lesion # 2: Location: left lower leg Duration: several years Quality: denies pain, denies itch, denies bleeding Modifying factors: none Associated symptoms: dark in color, no change in color and size. Treatments: none rash Location: scalp Duration: years Quality: scaly denies itchy Modifying factors: none Associated symptoms: scaly Treatments: Supply Assistant Dr. Olson order prescribed a fluocinolone solution every day as needed. New patient All pertinent medical history, medications, and allergies were reviewed. General Exam: alert , oriented to person, place, and time , normal affect, well appearing Unaccompanied A focused exam completed based on patient reported problems, see below: 1. Other seborrheic dermatitis Mid Frontal Scalp Erythema and scale. Flaring today Discussed that seborrheic dermatitis is a chronic condition that can be controlled but not cured. Start Flucinonide solution apply to affected area bid as needed for scaling and ketoconazole shampoo 2% apply to scalp, leave on for 5 minutes then rinse 2-3 times a week. Follow up in 1 year. Notify if any worsening or no improvement despite treatment. fluocinonide (Lidex) 0.05 % external solution - Mid Frontal Scalp Apply to affected areas on the scalp, up to twice a day when flared, 30 day supply ketoconazole (NIZOral) 2 % shampoo - Mid Frontal Scalp Apply topically 2 (two) times a week Lather on scalp 2-3 x a week, leave on 5 min before rinsing 2. Neoplasm of unspecified behavior of bone, soft tissue, and skin (2) Right Ear Hyperkeratotic papule Lesion biopsy Type of biopsy: tangential Informed consent: discussed and consent obtained Informed consent comment: The risks and benefits of the biopsy were discussed. Risks include but are not limited to bleeding, infection, scarring, pain, and nerve damage. An opportunity to ask questions prior to the procedure was permitted and all questions were answered. Patient was prepped and draped in usual sterile fashion: area cleansed with alcohol. Anesthesia: the lesion was anesthetized in a standard fashion Anesthetic: 1% lidocaine w/ epinephrine 1-100,000 buffered w/ 8.4% NaHCO3 Instrument used: DermaBlade Hemostasis achieved with: electrodesiccation Outcome: patient tolerated procedure well Outcome comment: The specimen was placed in a prelabeled formalin container to be sent for pathology Post-procedure details: sterile dressing applied and wound care instructions given Post-procedure details comment: Emphasized need to contact clinic for any signs of infection, uncontrollable bleeding, or complications. Dressing type: bandage Additional details: Photo taken Amount of lidocaine used: 0.5 cc Specimen A - Dermatopathology exam Differential Diagnosis: BCC Check Margins: No Size of lesion: 0.8 x 0.8 cm Left Lower Leg - Anterior Purplish colored papule Lesion biopsy Type of biopsy: tangential Informed consent: discussed and consent obtained Informed consent comment: The risks and benefits of the biopsy were discussed. Risks include but are not limited to bleeding, infection, scarring, pain, and nerve damage. An opportunity to ask questions prior to the procedure was permitted and all questions were answered. Patient was prepped and draped in usual sterile fashion: area cleansed with alcohol. Anesthesia: the lesion was anesthetized in a standard fashion Anesthetic: 1% lidocaine w/ epinephrine 1-100,000 buffered w/ 8.4% NaHCO3 Instrument used: DermaBlade Hemostasis achieved with: electrodesiccation Outcome: patient tolerated procedure well Outcome comment: The specimen was placed in a prelabeled formalin container to be sent for pathology Post-procedure details: sterile dressing applied and wound care instructions given Post-procedure details comment: Emphasized need to contact clinic for any signs of infection, uncontrollable bleeding, or complications. Dressing type: bandage Additional details: Photo taken Amount of lidocaine used: 0.5 cc Specimen B - Dermatopathology exam Differential Diagnosis: Angioma vs other Check Margins: No Size of lesion: 0.3 x 0.3 cm Shave biopsy today, see procedure note. Patient will be notified of results. Follow up pending biopsy results. Next Visit: pending biopsy results2, 1 year follow up documented in this encounter [facility] 06-16-2023 Miscellaneous Notes Called Evangelist regarding the screening colonoscopy referral that our office received from Dr. Marshall, I left a message on voicemail to call the office back to schedule an appointment. Last colonoscopy 07/01/[address] Robin Called Evangelist regarding the referral that our office received, I left a message on voicemail to call the office back to schedule an appointment. Called Evangelist regarding the referral that our office received, I left a message on his voicemail to call the office back to schedule an appointment. documented in this encounter [facility] 06-16-2023 Telephone encounter Note Called Evangelist regarding the screening colonoscopy referral that our office received from Dr. Marshall, I left a message on voicemail to call the office back to schedule an appointment. Last colonoscopy 07/01/[address] Robin [facility] 06-16-2023 Telephone encounter Note Called Evangelist regarding the referral that our office received, I left a message on voicemail to call the office back to schedule an appointment. [facility] 06-16-2023 Telephone encounter Note Called Evangelist regarding the referral that our office received, I left a message on his voicemail to call the office back to schedule an appointment. [facility] Evaluation note Diagnosis Other seborrheic dermatitis- Primary Neoplasm of unspecified behavior of bone, soft tissue, and skin documented in this encounter [facility] Diagnosis Basal cell carcinoma (BCC) of skin of right ear- Primary [facility] in this encounter [facility] Diagnosis Preoperative clearance- Primary Unspecified pre-operative examination Statin myopathy Toxic myopathy History of colon polyps Coronary artery disease involving nome coronary artery of nome heart without angina pectoris (CMS/HCC) Type 2 diabetes mellitus without complication, without long-term current use of insulin (CMS/HCC) Non-compliance Personal history of noncompliance with medical treatment, presenting hazards to health documented in this encounter [facility]InstructionsNot on filedocumented [facility] Purpose Family History No Family History Records FoundNo Family History Records FoundNo Family History Records FoundNo Family History Records FoundNo Family History Records Found Advance Directives No Advanced Directives Records FoundNo Advanced Directives Records FoundNo Advanced Directives Records FoundNo Advanced Directives Records FoundNo Advanced Directives Records Found Hospital Course Note MR#: [id number] I [facility] Pt. Name: Judith Crenshaw Admitted: 01/07/2019 Discharged: 01/08/2019 Date of : 1955 Physician: Griffin Noel MD DISCHARGE SUMMARY PRINCIPAL DIAGNOSES: 1. Unstable angina status post coronary artery angiogram with PCI and stenting of the left anterior descending artery. 2. Hypertension. 3. Diabetes. 4. Dyslipidemia. PROCEDURES THIS ADMISSION: None. CONSULTATIONS: Cardiology. HOSPITAL COURSE: This is a 63-year-old gentleman who had presented from his physician's office for a coronary angiogram in which they were found to have did a PCI of the LAD that was between 85 and 90% occluded, so was admitted to the hospital postoperatively. At that time, the patient had been complaining of chest pain over the last 2 weeks and intermittent episodes of chest pain with palpitations and shortness of breath along with diaphoresis that occurred also with exertion. Prior to this testing, he had had a stress test which turned out to be (more content not included)... Additional Source Comments (unrecognized sect ion and content) No Status Records FoundNo Status Records FoundNo Status Records FoundNo Status Records FoundNo Status Records Found INFORMATION SOURCE (unrecogn ized section and content) DATE CREATED AUTHOR 01/11/2019 [facility] DATE CREATED AUTHOR AUTHOR'S ORGANIZ ATION 05/31/2020 [facility] DATE CREATED AUTHOR AUTHOR'S ORGANIZ ATION 06/25/2021 [facility] DATE CREATED AUTHOR AUTHOR'S ORGANIZ ATION 03/19/2024 [facility] DATE CREATED AUTHOR AUTHOR'S ORGANIZ ATION 03/25/2024 [facility] Care Teams (unrecognized sec tion and content) 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 Specialty Start Date End Date Brittanie Marshall DO [address] [place] [address] PCP - General Family Medicine 11/22/20 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 Specialty Start Date End Date Brittanie Marshall DO [address] [place] [address] PCP - General Family Medicine 09/30/22 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 Specialty Start Date End Date Brittanie Marshall DO [address] [place] [address] PCP - General Family Medicine 09/30/22 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 Specialty Start Date End Date Brittanie MarshallDO [address] [place] [address] PCP - General Family Medicine 09/30/22 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 Specialty Start Date End Date Brittanie MarshallDO [address] [place] [address] PCP - General Family Medicine 09/30/22 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 Specialty Start Date End Date Kelly Reynoso MD [address] [place] [address] PCP - General Family Medicine 03/11/24 Renetta Munoz NP [address] [place] [address] Nurse Practitioner Family Medicine 03/11/24 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 Specialty Start Date End Date Kelly Reynoso MD [address] [place] [address] PCP - General Family Medicine 03/11/24 Renetta Munoz NP [address] [place] [address] Nurse Practitioner Family Medicine 03/11/24 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 Dr rafiq matthews in [place] Surgery is is being done at [facility]. FOR RECORDS PERTAINING TO PATIENTS WHO ARE OR HAVE BEEN ENROLLED IN A CHEMICAL DEPENDENCY/SUBSTANCEABUSE PROGRAM, SOME INFORMATION MAY BE OMITTED. This clinical summary was aggregated from multiple sources. Caution should be exercised in using it in the provision of clinical care. This summary normalizes information from multiple sources, and as a consequence, information in this document may materially change the coding, format and clinical context of patient data. In addition, data may be omitted in some cases. CLINICAL DECISIONS SHOULD BE BASED ON THE PRIMARY CLINICAL RECORDS. [facility] [employer] [facility]. provides no warranty or guarantee of the accuracy or completeness of information in this document.
[2024-04-11 12:00] VITALS: BP 164/83; PULSE 57; TEMP 36.1; O2SAT 98; BMI 39.0
--- OUTSIDE RECORDS SUMMARY | 2024-04-11 12:04 | XMS_ITS | CCD ---
Author Organization [facility] Care Team Providers Care Elevator Constructor Electric Name Role Phone UNKNOWN, PHYSICIAN Referring Unavailable UNKNOWN, PHYSICIAN Primary Care Unavailable GRIFFIN NOEL Attending Unavailable GRIFFIN NOEL Admitting Unavailable JOHNNYANDER, EDDIE Attending Unavailable JOHNNYANDER, EDDIE Admitting Unavailable FRANCOIS YING Consulting Unavailable FRANCOIS YING Attending Unavailable FRANCOIS YING Admitting Unavailable GARETH COREY V Consulting Unavailable JOHNNYANDER, EDDIE Attending Unavailable EDDIE HINKLE Admitting Unavailable JOHNNYANDER, EDDIE Consulting Unavailable CASEY QUINTERO Attending Unavailable CASEY QUINTERO Admitting Unavailable Brittanie Marshall DO Primary Care Provider Brittanie Marshall DO Primary Care Provider [phone] Kelly Reynoso MD Primary Care Provider Renetta Munoz NP Unavailable BRITTANIE MARSHALL Attending Unavailable ELIZABETH SHETH Attending Unavailable MATEUS TOBAR Attending Unavailable BRITTANIE MARSHALL Attending Unavailable ALAYNA BHAKTA Attending Unavailable RAFIQ MATTHEWS Referring Unavailable KELLY REYNOSO Attending Unavailable PATRICIA ROGEL Attending Unavailable Allergies Allergy Classification Reported Allergen(s) Allergy Type Date of Onset Reaction(s) Facility (1 source) Simvastatin Drug Allergy 9 muscle cramps [facility] Work Phone: (11 sources) Simvastatin Propensity to adverse reactions 9 [...] 01/06/2019 Active atorvastatin 80 mg oral tablet (11 sources) HMG-CoA Reductase Inhibitor Start: 09-30-2022 End: 09-30-2023 take 1 tablet by mouth in the morning atorvastatin (Lipitor) 80 MG tablet Take 80 mg by mouth in the morning. 09/30/2022 Active cephalexin 500 mg oral capsule (7 sources) Cephalosporin Antibacterial Start: 07-09-2023 take 1 capsule by mouth twice daily cephalexin (Keflex) 500 MG capsule Indications: Basal cell carcinoma (BCC) of skin of right ear Take 1 capsule, by mouth, bid, 10 days 20 capsule 07/09/2023 Active fluocinolone acetonide 0.1 mg/ml topical oil (11 sources) Corticosteroid Start: 04-29-2023 End: 04-28-2024 fluocinolone ([place]-Smoothe/FS Body) 0.01 % external oil Indications: Actinic keratoses Apply topically 3 (three) times a day 118.28 mL 04/29/2023 04/28/2024 Active fluocinonide 0.5 mg/ml topical solution (10 sources) Corticosteroid Start: 06-30-2023 fluocinonide (Lidex) 0.05 [...] Date Documented Da te Episodic/Chronic Anxiety disorders (11 sources) Claustrophobia; Translations: [Claustrophobia] Onset: 04-29-2023 04-29-2023 Chronic Coronary atherosclerosis and other heart disease (20 sources) Coronary arteriosclerosis; Translations: [Atherosclerotic heart disease of [place] coronary artery without angina pectoris] Onset: 02-07-2019 04-29-2023 Chronic Diabetes mellitus with complications (4 sources) Type 2 diabetes mellitus with diabetic neuropathy, unspecified; Translations: [TYPE 2 DM W/DIABETIC NEUROPATHY UNS] Onset: 12-02-2019 Diabetes mellitus without complication (20 sources) Diabetes mellitus; Translations: [Type 2 diabetes mellitus without complications] Onset: 07-14-2022 01-06-2019 Chronic Disorders of lipid metabolism (12 sources) Mixed hyperlipidemia; Translations: [Mixed hyperlipidemia] Onset: 07-14-2022 01-06-2019 Chronic Diverticulosis and diverticulitis (12 sources) Diverticular disease; Translations: [Diverticulosis of intestine, part unspecified, without perforation or abscess without bleeding] Onset: 05-25-2006 01-06-2019 Chronic Essential hypertension (12 sources) Hypertensive disorder; Translations: [Essential (primary) hypertension] Onset: 07-14-2022 01-06-2019 Chronic Hyperplasia of prostate (11 sources) Benign prostatic hyperplasia; Translations: [Benign prostatic [...] polyps] 03-17-2024 Episodic Other connective tissue disease (11 sources) History of repair of hip joint; Translations: [Presence of left artificial hip joint] Onset: 04-29-2023 04-29-2023 Chronic Other ear and sense organ disorders (12 sources) Hearing loss; Translations: [Unspecified hearing loss, unspecified ear] Onset: 07-14-2022 01-06-2019 Chronic Other ear and sense organ disorders (11 sources) Sensorineural hearing loss, bilateral; Translations: [Sensorineural hearing loss, bilateral] Onset: 04-29-2023 04-29-2023 Chronic Other inflammatory condition of skin (2 sources) Seborrheic dermatitis; Translations: [Other seborrheic dermatitis] 06-30-2023 Episodic Other nervous system disorders (12 sources) Carpal tunnel syndrome; Translations: [Carpal tunnel syndrome, unspecified upper limb] Onset: 07-14-2022 01-06-2019 Chronic Other nervous system disorders (11 sources) Chronic pain; Translations: [Other chronic pain] Onset: 04-29-2023 04-29-2023 Chronic Other nervous system disorders (2 sources) Drug-induced myopathy; Translations: [Drug-induced myopathy] 03-17-2024 Episodic Other non-epithelial cancer of skin (2 sources) Basal cell carcinoma of ear; Translations: [Basal cell carcinoma of skin of right ear and external auricular canal] 07-09-2023 Episodic Other nutritional; endocrine; and metabolic disorders (12 sources) Morbid obesity; Translations: [Morbid (severe) obesity due to excess calories] Onset: 07-14-2022 01-06-2019 Chronic Residual codes; unclassified (12 sources) Obstructive sleep apnea syndrome; Translations: [Obstructive [...] 07-14-2022 01-06-2019 Episodic Anal and rectal conditions (11 sources) Chronic anal fissure; Translations: [Chronic anal fissure] Onset: 04-29-2023 04-29-2023 Episodic Cardiac dysrhythmias (12 sources) Tachycardia; Translations: [Tachycardia, unspecified] Onset: 07-14-2022 01-06-2019 Episodic Conditions associated with dizziness or vertigo (12 sources) Lightheadedness; Translations: [Dizziness and giddiness] Onset: 07-14-2022 01-06-2019 Episodic Coronary atherosclerosis and other heart disease (11 sources) Stented coronary artery; Translations: [Presence of coronary angioplasty implant and graft] Onset: 04-29-2023 04-29-2023 Episodic Other and unspecified benign neoplasm (11 sources) Lipoma of thigh; Translations: [Benign lipomatous neoplasm of skin and subcutaneous tissue of right leg] Onset: 04-29-2023 04-29-2023 Episodic Other connective tissue disease (1 source) Pain in left foot; Translations: [PAIN IN LEFT FOOT] Onset: 12-05-2019 Episodic Other diseases of kidney and ureters (11 sources) Disorder of urinary tract; Translations: [Other obstructive and reflux uropathy] Onset: 04-29-2023 04-29-2023 Episodic Other diseases of veins and lymphatics (12 sources) Peripheral venous insufficiency; Translations: [Venous insufficiency (chronic) (peripheral)] Onset: 07-14-2022 01-06-2019 Episodic Other diseases of veins and lymphatics (11 sources) Varicocele; Translations: [Scrotal varices] Onset: 04-29-2023 04-29-2023 Episodic Other ear and sense organ disorders (11 sources) Does use hearing aid; Translations: [Presence of external hearing-aid] Onset: 04-29-2023 04-29-2023 Episodic Other lower respiratory disease (12 sources) Dyspnea on exertion; Translations: [Other forms of dyspnea] Onset: 07-14-2022 01-06-2019 Episodic Other non-traumatic joint disorders (4 sources) Pain in left ankle and joints of left foot; Translations: [PAIN IN LEFT ANKLE] Onset: 11-23-2019 Episodic Other screening for suspected conditions (not mental disorders or infectious disease) (12 sources) Thallium stress test abnormal; Translations: [Abnormal [...] Range Facility Office Visiton 03-23-2024 Follow-up visit [id number] Judith Crenshaw 1955 M Date Provider Department Center 03/23/2024 [id number] ROGEL Family History Problem Relation Age of Onset Heart attack Paternal Grandmother Heart attack Paternal Grandfather Family Status - Relation Status Age at Paternal Grandmother Paternal Grandfather Level of Service:41654 [place] OFFICE/OUTPATIENT ESTABLISHED MOD MDM 30 MIN Reason for Visit and Comments: Coronary Artery Disease [187] - Not taking aspirin or statin. Says he feels great now that he's stopped all his medications. Denies chest pain. Gets SOB w/ carrying heavy objects. surgery clearance [Other] - Scheduled for carpal tunnel surgery with Dr. Matthews next week. Had EKG, CXR, and labs last week. Hypertension [975077] - BP was 102/56 last week in PCP's office. [facility] No Panel Informationon 07-09 Consent obtained: written (The rationale for Mohs as well as the risks, benefits, and alternatives. The risks of infection, scarring, bleeding, prolonged wound healing, incomplete removal, allergy to anesthesia or meds, nerve injury, and recurrence were addressed.) [place] Protocol: Procedure explained and questions answered to [...] sodium bicarbonate Procedure Details: Biopsy accession number: [id number] Biopsy lab: [facility] Date of biopsy: 06/30/2023 Frozen section biopsy [...] surgery? Yes When were antibiotics given? post-operative [facility] e No Panel Informationon 06-30 Type [...] taken Amount of lidocaine used: 0.5 cc [facility] Type of biopsy: tangential Informed [...] taken Amount of lidocaine used: 0.5 cc [facility] Sunny 10-23-2020 NEIL Telephone (BRIONNA) JUDITH CRENSHAW ([id number]) 1955 M Date Time Provider Department 10/23/20 KEYANNA ZAPATA RN During your visit today, we recorded the [...] Allergies) Date Reviewed: 03/03/2011 Reviewed by: Joie (Rn) SHARONA Solomon - Fully Assessed Reason for Visit: Patient Update [1234] Prescriptions as of 10/23/2020 Sig: ASPIRIN 325 MG TABLET,DELAYED* Take 1 tablet by mouth twice * ACETAMINOPHEN 325 MG TABLET Take 1-2 tablets by mouth joel* OXYCODONE 5 MG TABLET Take 1-2 tablets by mouth joel* OXYCODONE-ACETAMINOPHEN 5 MG-* Take 1-2 tablets by mouth jole* FERROUS SULFATE 325 MG (65 MG* Take [...] by KEYANNA ZAPATA RN on 10/23/20 Normal [facility] Covid-19 PCR (CVDTBH)on 04-26 Covid-19 PCR DETECTED Abnormal NOT DETECTED [facility] Comment on above: Result Comment: This test is not yet approved or cleared by the [place] FDA. When there are no FDA-approved or cleared tests available, and other criteria are met, FDA can make tests available under an emergency access mechanism called an Emergency Use Authorization (EUA). The EUA for this test is supported by the [place] of Health and Human Service's (HHS's) declaration [...] longer be used). Performed By: #### C VDTB #### [facility] [address] [place] [address] Armida Hernandez EUA Statement SEE BELOW Normal The [facility] Comment on above: Result Comment: This test is not yet approved or cleared by the [place] FDA. When there are no FDA-approved or cleared tests available, and other criteria are met, FDA can make tests available under an emergency access mechanism called an Emergency Use Authorization (EUA). The EUA for this test is supported by the [place] of Health and Human Service?s (HHS?s) declaration [...] SARS-CoV-2. Performed By: #### C VDTB #### [facility] [address] [place] [id number] Armida Hernandez XR ANKLE LT MIN 3 [...] GARETH COREY Date: 2019-11-23 15:46 Normal [facility] BASIC METABOLIC PANELon 12-23 Calcium [Mass/Vol] 8.8 mg/dL Normal 8.6-10.3 The [facility] Comment on above: Order Comment: No: D o not add to previous draw Performed By: #### 0 0071 #### [facility] [address] [place] [address], [facility] Chloride [Moles/Vol] 105 mmol/L Normal 98-107 [facility] Comment on above: Order Comment: No: D o not add to previous draw Performed By: #### 0 0071 #### [facility] [address] [place] [address], [place] CO2 [Moles/Vol] 27 mmol/L Normal 21-31 The [facility] Comment on above: Order Comment: No: D o not add to previous draw Performed By: #### 0 0071 #### [facility] [address] [place] [address], [place] Creatinine [Mass/Vol] 0.89 mg/dL Normal 0.70-1.30 [facility] Comment on above: Order Comment: No: D o not add to previous draw Performed By: #### 0 0071 #### [facility] [address] [place] [address], [place] GFR/1.73 sq M predicted among blacks MDRD (S/P/Bld) [Vol rate/Area] mL/min/{1.73_m2} Normal >60 [facility] Comment on above: Order Comment: No: D o not add to previous draw Performed By: #### 0 0071 #### [facility] [address] [place] [address], [place] GFR/1.73 sq M predicted among non-blacks MDRD (S/P/Bld) [Vol rate/Area] mL/min/{1.73_m2} Normal >60 [facility] Comment on above: Order Comment: No: D o not add to previous draw Performed By: #### 0 0071 #### [facility] [address] [place] [address], [place] Glucose [Mass/Vol] 121 mg/dL High 70-100 [facility] Comment on above: Order Comment: No: D o not add to previous draw Performed By: #### 0 0071 #### [facility] [address] [place] [address], [place] Potassium [Moles/Vol] 3.7 mmol/L Normal 3.5-5.1 [facility] Comment on above: Order Comment: No: D o not add to previous draw Performed By: #### 0 0071 #### [facility] [address] [place] [place] [address], [facility] Sodium [Moles/Vol] 138 mmol/L Normal 136-145 [facility] Comment on above: Order Comment: No: D o not add to previous draw Performed By: #### 0 0071 #### [facility] [address] [place] [address], [facility] Urea nitrogen [Mass/Vol] 13 mg/dL Normal 7-25 [facility] Comment on above: Order Comment: No: D o not add to previous draw Performed By: #### 0 0071 #### [facility] [address] [address], [facility] CBC W/DIFFon 01-08-2019 ABS BASOPHILS 0.1 10*3/uL Normal 0.0-0.2 [facility] Comment on above: Order Comment: No: D o not add to previous draw Performed By: #### 5 0103 #### [facility] [address] [address], [facility] ABS IMM GRANS 0.0 10*3/uL Normal 0.0-0.2 [facility] Comment on above: Order Comment: No: D o not add to previous draw Performed By: #### 5 0103 #### [facility] [address] [place] [address], [facility] ABS NEUTROPHILS 4.9 10*3/uL Normal 1.6-7.6 The [facility] Comment on above: Order Comment: No: D o not add to previous draw Performed By: #### 5 0103 #### [facility] [address] [place] [address], [facility] Basophils/100 WBC (Bld) 0.7 % Normal 0.0-1.0 [facility] Comment on above: Order Comment: No: D o not add to previous draw Performed By: #### 5 0103 #### [facility] [address] [place] [address], [facility] Eosinophils (Bld) [#/Vol] 0.1 10*3/uL Normal 0.0-0.5 [facility] Comment on above: Order Comment: No: D o not add to previous draw Performed By: #### 5 0103 #### [facility] [address] [place] [address], [facility] Eosinophils/100 WBC (Bld) 1.7 % Normal 0.0-6.0 [facility] Comment on above: Order Comment: No: D o not add to previous draw Performed By: #### 5 0103 #### [facility] [address] [place] [address], [facility] Erythrocyte distribution width (RBC) [Ratio] 13.0 % Normal 11.5-15.0 [facility] Comment on above: Order Comment: No: D o not add to previous draw Performed By: #### 5 0103 #### [facility] [address] [place] [address], [facility] Hematocrit (Bld) [Volume fraction] 39.6 % Normal 39.0-50.0 [facility] Comment on above: Order Comment: No: D o not add to previous draw Performed By: #### 5 0103 #### [facility] [address] [place] [address], [facility] Hemoglobin (Bld) [Mass/Vol] 13.3 g/dL Normal 13.0-17.0 [facility] Comment on above: Order Comment: No: D o not add to previous draw Performed By: #### 5 0103 #### [facility] [address] [place] [address], [place] IMMATURE GRANS 0.5 % Normal 0.0-1.0 [facility] Comment on above: Order Comment: No: D o not add to previous draw Performed By: #### 5 0103 #### [facility] [address] [address], [facility] Lymphocytes (Bld) [#/Vol] 1.8 10*3/uL Normal 1.2-4.0 [facility] Comment on above: Order Comment: No: D o not add to previous draw Performed By: #### 5 0103 #### [facility] [address] [address], [facility] Lymphocytes/100 WBC (Bld) 23.4 % Normal 20.0-45.0 [facility] Comment on above: Order Comment: No: D o not add to previous draw Performed By: #### 5 0103 #### [facility] [address] [address], [facility] MCH (RBC) [Entitic mass] 28.7 pg Normal 27.0-33.0 [facility] Comment on above: Order Comment: No: D o not add to previous draw Performed By: #### 5 0103 #### [facility] [address] [address], [facility] MCHC (RBC) [Mass/Vol] 33.6 g/dL Normal 32.0-35.0 [facility] Comment on above: Order Comment: No: D o not add to previous draw Performed By: #### 5 0103 #### [facility] [address] [place] [id number], [facility] MCV (RBC) [Entitic vol] 85.5 fL Normal 82.0-98.0 [facility] Comment on above: Order Comment: No: D o not add to previous draw Performed By: #### 5 0103 #### [facility] [address] [place] [address], [facility] Monocytes (Bld) [#/Vol] 0.7 10*3/uL Normal 0.1-1.0 [facility] Comment on above: Order Comment: No: D o not add to previous draw Performed By: #### 5 0103 #### [facility] [address] [place] [address], [facility] MONOS 9.0 % Normal 5.0-12.0 [facility] Comment on above: Order Comment: No: D o not add to previous draw Performed By: #### 5 0103 #### [facility] [address] [place] [address], [facility] Neutrophils/100 WBC (Bld) 64.7 % Normal 40.0-72.0 [facility] Comment on above: Order Comment: No: D o not add to previous draw Performed By: #### 5 0103 #### [facility] [address] [place] [address], [facility] Nucleated RBC/100 WBC (Bld) [Ratio] 0 % Normal 0-0 [facility] Comment on above: Order Comment: No: D o not add to previous draw Performed By: #### 5 0103 #### [facility] [address] [place] [id number], [facility] PLAT CNT 224 10*3/uL Normal 150-[address] [facility] Comment on above: Order Comment: No: D o not add to previous draw Performed By: #### 5 0103 #### [facility] [address] [place] [id number], [facility] RBC (Bld) [#/Vol] 4.63 10*6/uL Normal 4.20-5.70 [facility] Comment on above: Order Comment: No: D o not add to previous draw Performed By: #### 5 0103 #### [facility] [address] [place] [address], [place] WBC (Bld) [#/Vol] 7.56 10*3/uL Normal 4.00-10.60 [facility] Comment on above: Order Comment: No: D o not add to previous draw Performed By: #### 5 0103 #### [facility] [address] [place] [address], [facility] POC GLUCOSE LABon 01-08-2019 Glucose [Mass/Vol] 152 mg/dL High 70-100 [facility] Comment on above: Performed By: #### 8 5499 #### [facility] [address] [place] [address], [place] Glucose [Mass/Vol] 149 mg/dL High 70-100 [facility] Comment on above: Performed By: #### 8 5499 #### [facility] [address] [place] [address], [facility] History and Physicalon 01-07 History and Physical MR#: [id number] [facility] Pt. Name: Judith Crenshaw Admitted: 01/07/2019 Date of : 1955 Attending Physician: Michelle Paez MD Room #: [id number] Discharge Date: HISTORY AND PHYSICAL CHIEF COMPLAINT: [...] Thursday. However, he was seen by Dr. Singh from Cardiology, who sent him for coronary [...] P/Michelle Paez MD Date Trans: 01/07/2019 09:13 P/mmo [id number] Normal [facility] Vital Signs Date Time Vital Sign Value Performing Clinician Kathy pisano 03-17-2024 15:17040 Body height 172.7 cm Kelly Reynoso MD Work Phone: [facility] 03-17-2024 15:17-0400 Body mass index (BMI) [Ratio] 41.48 kg/m2 Kelly Reynoso MD Work Phone: [facility] 03-17-2024 15:17040 Body weight 123.74 kg Kelly Reynoso MD Work Phone: [facility] 03-17-2024 15:17-0400 Diastolic blood pressure 56 mm[Hg] Kelly Reynoso MD Work Phone: [facility] 03-17-2024 15:17-0400 Heart rate 79 /min Kelly Reynoso MD Work Phone: [facility] 03-17-2024 15:17-0400 SaO2% (BldA) [Mass fraction] 96 % Kelly Reynoso MD Work Phone: [facility] 03-17-2024 15:17-0400 Systolic blood pressure 102 mm[Hg] Kelly Reynoso MD Work Phone: [facility] 07-09-2023 08:35-0500 Diastolic blood pressure 90 mm[Hg] Mateus Tobar MD Work Phone: [facility] 07-09-2023 08:35-0500 Systolic blood pressure 170 mm[Hg] Mateus Tobar MD Work Phone: [facility] Encounters Encounter Date Encounter Type Care Provider Facility Start: 03-29-2024 End: 03-29-2024 Telephone encounter Kelly Reynoso MD Work Phone: [facility] Start: 03-23-2024 End: 03-23-2024 ambulatory [facility] Start: 03-23-2024 End: 03-23-2024 Encounter for other preprocedural examination [facility] Start: 03-17-2024 End: 03-17-2024 Office outpatient visit 25 minutes Kelly Reynoso MD Work Phone: [facility] Comment on above: Preoperative clearan ce (Primary Dx); Statin myopathy; History of colon polyps; Coronary artery disease involving [place] coronary artery of [place] heart without angina pectoris (CMS/HCC); Type 2 diabetes mellitus without complication, without long-term current use of insulin ([facility]); Non-compliance Start: 03-17-2024 End: 03-17-2024 Preoperative state Kelly Reynoso MD Work Phone: [facility] Start: 03-17-2024 End: 03-17-2024 ambulatory [...] outpatient new 30 minutes Elizabeth A Felter ASSISTANT [employer]ARIAN Work Phone: [facility] Comment on above: Other seborrheic fito matitis (Primary Dx); Neoplasm of unspecified behavior of bone, soft tissue, and skin Start: 06-30-2023 Bamboo flowsheet Elizabeth A Fel ter ASSISTANT [employer]ARIAN Work Phone: [facility] Start: 06-30-2023 Bamboo flowsheet Elizabeth A Fel ter ASSISTANT [employer]NAGER[employer]INARIAN Work Phone: [facility] Start: 06-16-2023 Telephone encounter Cammie Juárez ASSISTANT [employer]NA[employer]INARIAN Work Phone: [facility] Start: 06-15-2023 End: 06-15-2023 ambulatory BRITTANIE G ROLANDO Not Available Start: 04-29-2023 End: 04-29-2023 ambulatory BRITTANIE G ROLANDO Not Available Start: 05-24-2020 End: 05-24-2020 Patient encounter procedure FRANCOIS YING Facility:[facility] Start: 12-14-2019 Patient encounter procedure EDDIE HINKLE Facility:[facility] Start: 12-02-2019 End: 12-03-2019 Patient encounter procedure CASEY QUINTERO Facility:[facility] Start: 11-23-2019 End: 11-24-2019 Patient encounter procedure GARETH COREY Facility:[facility] Start: 01-07-2019 End: 01-08-2019 Evaluation and management of inpatient PHYSICIAN UNKNOWN Facility:[facility] Procedures Date Procedure Procedure Detail Performing Clinician Start: 07-09-2023 [facility] Mateus stack MD Work Phone: Start: 06-30-2023 End: 06-30-2023 SKIN / NAIL BIOPSY Elizabeth Sheth APR N-VETERINARIAN Work Phone: Start: 07-01-2018 Colonoscopy Elizabeth broderick ASSISTANT RESTAURANT GENERAL MANAGER-VETERINARIAN Work Phone: Plan of Treatment Date Care Activity Detail Author Start: 07-01-2028 Screening for malignant neoplasm of colon [facility] Start: 06-30-2024 End: 06-30-2024 Patient encounter procedure 06/30/2024 3:55 PM EST Office Visit [facility] [address] [place] [address] Elizabeth Sheth, ASSISTANT RESTAURANT GENERAL MANAGER-VETERINARIAN [address] [place] [address] [facility] Start: 06-15-2024 Urine screening for protein Diabetes: Urine Protein Screening [facility] Start: 04-29-2024 Pneumococcal Vaccine: 65+ Years (1 - PCV) Pneumococcal Vaccine: 65+ Years (1 - PCV) [facility] Comment on above: Postponed from 11/10/1963 (Patient Refus ed) Start: 04-29-2024 Pneumococcal Vaccine: 65+ Years (1 of 2 - PCV) Pneumococcal Vaccine: 65+ Years (1 of 2 - PCV) [facility] Comment on above: Postponed from 11/10/1963 (Patient Refus ed) Start: 03-17-2024 End: 03-17-2024 Patient encounter procedure 03/17/2024 3:30 PM EDT Office Visit [facility] [address] [place] [phone] Kelly Reynoso MD [address] [facility] [place] [address] Arrived [facility] Comment on above: Arrived Start: 03-14-2024 End: 03-14-2024 Patient encounter procedure 03/14/2024 4:30 PM EDT Office Visit [facility] [address] [facility] [place] [phone] Reentta Munoz NP [address] [facility] [place] [id number] [facility] Start: 01-24-2024 Influenza vaccination Influenza Vaccine (#1) [facility] Start: 09-14-2023 Hemoglobin A1c measurement Diabetes: Hemoglobin A1C [facility] Start: 07-09-2023 End: 07-09-2023 Patient encounter procedure 07/09/2023 8:30 AM EST Office Visit [facility] [address] [place] [phone] Mateus Tobar MD [address] [place] [address] Arrived [facility] Comment on above: Arrived Start: 2022 Fall Risk Screening Fall Risk Screening [facility] Start: 05-28-2022 Glaucoma screening Diabetes: Retinopathy Screening [facility] Start: 11-10-2007 Administration of varicella zoster vaccine Zoster (Shingles) Vaccine (1 of 2) [facility] Start: 1976 DTaP,Tdap and Td Vaccines (1 - Tdap) DTaP,Tdap and Td Vaccines (1 - Tdap) [facility] Start: 11-10-1975 Adult BMI Screening Adult BMI Screening [facility] Start: 1969 Depression Screening Depression Screening [facility] Start: 1969 Tobacco Screening Tobacco Screening [facility] Start: 1957 Screening for malignant neoplasm of colon [facility] Dermatopathology exam Dermatopat hology exam Pathology and Cytology Timed Neoplasm of unspecified behavior of bone, soft tissue, and skin Release Upon Ordering for 1 Occurrences starting 06/30/2023 [facility] Work Phone: Comment on above: Release Upon Ordering for 1 Occurrences starting 06/30/2023 Immunizations Immunization Date Immunization Notes Care Provider Monserrat correia 02-22-2023 influenza, seasonal, injectable Elizabeth Sheth ASSISTANT RESTAURANT GENERAL MANAGER-VETERINARIAN Work Phone: [facility] 02-22-2023 influenza virus vacc ine, unspecified formulation Kelly Reynoso MD Work Phone: [facility] 02-07-2020 influenza, injectabl e, quadrivalent, preservative free Elizabeth Zunigaer ASSISTANT RESTAURANT GENERAL MANAGER-VETERINARIAN Work Phone: [facility] 02-23-2018 seasonal influenza, intradermal, preservative free Elizabeth Zunigaer ASSISTANT RESTAURANT GENERAL MANAGER-VETERINARIAN Work Phone: [facility] 02-23-2017 seasonal influenza, intradermal, preservative free Elizabeth Felter ASSISTANT RESTAURANT GENERAL MANAGER-VETERINARIAN Work Phone: [facility] Payers Date Payer Category Payer Private Health Insurance [id number] 2022 Unknown [employer] [id number] 2022-Present [phone] [address] [address] [place] [address] [id number] 2022 Unknown [id number] 1959 Unknown [id number] 1957 Unknown [id number] [id number]. 2.647 1957 Unknown [id number] [id number]. 2.593 1957 Unknown [id number] [id number]. 2.593 1957 Unknown [id number] [id number]. 2.593 1957 Unknown [id number] [id number]. 2.593 1957 Unknown [id number] [id number]. 2.1259 1957 Unknown [id number] [id number]. 2.1259 1957 Unknown [id number] [id number]. 2.1259 1957 Unknown [id number] [id number]. 2.1259 1957 Unknown [id number] [id number]. 2.9 1957 Unknown [id number] 2.1259 Social History Date Type Detail Facility Start: 01-06-2019 End: 03-17-2024 Tobacco smoking status NHIS Ex-smoker [facility] End: 05-25-2004 History of tobacco use Current smoker [facility] Start: 01-06-2019 End: 03-17-2024 Tobacco use and exposure Smokeless tobacco non-user [facility] Start: 01-06-2019 Alcohol intake Current non-drinker of alcohol (finding) [facility] Start: 07-01-2018 End: 03-17-2024 History of Social function [facility] Start: 07-01-2018 End: 03-17-2024 Alcohol Use Disorder Identification Test - Consumption [AUDIT-C] [facility] Frequency of Alcohol Consumption Never [facility] Start: 1955 Sex Assigned At Not on file [facility] End: 05-25-2004 History of tobacco use Cigarette Smoker [facility] Start: 06-15-2023 End: 07-09-2023 Alcohol intake Current drinker of alcohol (finding) [facility] How often to you hav e a drink containing alcohol? Monthly or less [facility] How often do you hav e 6 or more drinks on 1 occasion? Never [facility] Start: 05-12-2023 Alcohol Comment caffeine: 1-2 cups per day [facility] Start: 03-17-2024 Alcoholic beverage intake Ex-drinker (finding) [facility] Clinical Notes 06-16-2023 to 03-29-2024 Telephone Encounter - Sebastián Kaufman - 03/29/2024 11:07 AM ESTTelephone Encounter - Sebastián Shae - 03/29/2024 11:07 AM Pop Reynoso MD - 03/17/2024 3:30 PM EDT Note Date & Type Note Facility 03-29-2024 Telephone encounter Note Judith called - asking if you wanted to send in scripts for BP and something for his high sugar . He said reports are in his results from [facility] . He doesn't want to come in for another appt if he doesn't have too. 'Judith- [phone] [facility] 03-29-2024 Miscellaneous Notes Judith called - asking if you wanted to send in scripts for BP and something for his high sugar . He said reports are in his results from [facility] . He doesn't want to come in for another appt if he doesn't have too. 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 He did well after the [...] and Affect: Mood (more content not included)... [facility] 03-17-2024 History of Present illness Narrative Images from the original note were not included. Judith Crenshaw is a 68 y.o. male presents with chief complaint of Establish Care (03/28 left wrist 04/11 right wrist severe carpel tunnel. Dr rafiq matthews in [place]. Surgery is is being done at [facility]. ) [facility]: [facility] in [place] History of Present Illness The patient presents [...] capsule, by mouth, bid, 10 days fluocinolone ([place]-Smoothe/FS Body) 0.01 % external oil Topical, 3 [...] the time of the lab test. His manager estate will be informed about his visit today. The manager estate will determine if he is fit for [...] prior to surery. He is seeing his manager estate for cardiac clearnace. Statin myopathy History of colon polyps Relevant Orders Ambulatory referral to General Surgery Non-compliance documented in this encounter [facility] 03-11-2024 Telephone encounter Note Pt was Rolando pt and chose Renetta as PRODUCT OPERATIONS ASSOCIATE I scheduled an appt for him for [...] he can get his labs done too. [facility] 03-11-2024 Miscellaneous Notes Pt was Rolando pt and chose Renetta as PRODUCT OPERATIONS ASSOCIATE I scheduled an appt for him for [...] labs done too. documented in this encounter [facility] 07-09-2023 History of Present illness Narrative Images [...] meds, nerve injury, and recurrence were addressed.) [place] Protocol: Procedure explained and questions answered to [...] sodium bicarbonate Procedure Details: Biopsy accession number: [id number] Biopsy lab: [facility] Date of biopsy: 06/30/2023 Frozen section biopsy [...] visit: 1 year documented in this encounter [facility] 06-30-2023 History of Present illness Narrative Images [...] Modifying factors: none Associated symptoms: scaly Treatments: Composite Worker Dr. Olson order prescribed a fluocinolone solution [...] year follow up documented in this encounter [facility] 06-16-2023 Miscellaneous Notes Called Evangelist regarding the [...] schedule an appointment. documented in this encounter [facility] 06-16-2023 Telephone encounter Note Called Evangelist regarding the screening colonoscopy referral that our office received from Dr. Marshall, I left a message on voicemail to call the office back to schedule an appointment. Last colonoscopy 07/01/[address] Robin [facility] 06-16-2023 Telephone encounter Note Called Evangelist regarding the referral that our office received, I left a message on voicemail to call the office back to schedule an appointment. [facility] 06-16-2023 Telephone encounter Note Called Evangelist regarding the referral that our office received, I left a message on his voicemail to call the office back to schedule an appointment. [facility] [employer] Evaluation note Diagnosis Other seborrheic dermatitis- Primary Neoplasm of unspecified behavior of bone, soft tissue, and skin documented in this encounter [facility]* Diagnosis Basal cell carcinoma (BCC) of skin of right ear- Primary [facility] Diagnosis Preoperative clearance- Primary Unspecified pre-operative examination Statin myopathy Toxic myopathy History of colon polyps Coronary artery disease involving [place] coronary artery of [place] heart without angina pectoris ([facility]) Type 2 diabetes mellitus without complication, without long-term current use of insulin ([facility]) Non-compliance Personal history of noncompliance with medical treatment, presenting hazards to health documented in this encounter [facility] HealthcareInstructionsNot on filedocumented in this encounterCople[facility] Summary Purpose Family History No Family History Records FoundNo Family History Records FoundNo Family History Records FoundNo Family History Records FoundNo Family History Records Found Advance Directives No Advanced Directives Records FoundNo Advanced Directives Records FoundNo Advanced Directives Records FoundNo Advanced Directives Records FoundNo Advanced Directives Records Found Hospital Course Note MR#: [id number] [facility] Pt. Name: Judith Crenshaw Admitted: 01/07/2019 Discharged: [...] and content) DATE CREATED AUTHOR 01/11/2019 [facility] DATE CREATED AUTHOR AUTHOR'S ORGANIZ ATION 05/31/2020 [facility] DATE CREATED AUTHOR AUTHOR'S ORGANIZ ATION 06/25/2021 [facility] DATE CREATED AUTHOR AUTHOR'S ORGANIZ ATION 03/19/2024 [facility] DATE CREATED AUTHOR AUTHOR'S ORGANIZ ATION 03/25/2024 [facility] Care Teams (unrecognized sec tion and content) Elevator Constructor Electric Relationship Specialty Start Date End Date Brittanie Marshall DO [address] [place] [address] PCP - General Family Medicine 11/22/20 Elevator Constructor Electric Relationship Specialty Start Date End Date Brittanie Marshall DO [address] [place] [address] PCP - General Family Medicine 09/30/22 Elevator Constructor Electric Relationship Specialty Start Date End Date Brittanie Marshall DO [address] [place] [address] PCP - General Family Medicine 09/30/22 Elevator Constructor Electric Relationship Specialty Start Date End Date Brittanie Marshall DO [address] [place] [address] PCP - General Family Medicine 09/30/22 Elevator Constructor Electric Relationship Specialty Start Date End Date Brittanie Marshall DO [address] [place] [address] PCP - General Family Medicine 09/30/22 Elevator Constructor Electric Relationship Specialty Start Date End Date Kelly Reynoso MD [address] [place] [address] PCP - General Family Medicine 03/11/24 Renetta Munoz NP [address] [place] [address] Nurse Practitioner Family Medicine 03/11/24 Elevator Constructor Electric Relationship Specialty Start Date End Date Kelly Reynoso MD [address] [place] [address] PCP - General Family Medicine 03/11/24 Renetta Munoz NP [address] [place] [address] Nurse Practitioner Family Medicine 03/11/24 Elevator Constructor Electric Relationship Specialty Start Date End Date Kelly Reynoso MD [address] [place] [address] PCP - General Family Medicine 03/11/24 Renetta Munoz NP [address] [place] [address] Nurse Practitioner Family Medicine 03/11/24 Elevator Constructor Electric Relationship Specialty Start Date End Date Kelly Reynoso MD [address] [place] [address] PCP - General Family Medicine 03/11/24 Renetta Munoz NP [address] [place] [address] Nurse Practitioner Family Medicine 03/11/24 Reason for Visit (unrecogniz ed section and content) Reason Comments Suspicious Skin Lesion Reason Comments Mohs micrographic surgery Reason Comments Establish Care 03/28 left wrist 03/25 8 right wrist severe carpel tunnel. Dr rafiq matthews in [place]. Surgery is is being done at [facility]. FOR RECORDS PERTAINING TO PATIENTS WHO ARE [...] BE BASED ON THE PRIMARY CLINICAL RECORDS. [facility]. provides no warranty or guarantee of the accuracy or completeness of information in this document.
[2024-04-11] MEDS: 0.9 % SODIUM CHLORIDE 500 ML 50 ML IV (12:23)
[2024-04-11] MEDS: CEFAZOLIN SODIUM/DEXTROSE,ISO 2 GM/50 ML PIGGYBACK IV (12:34)
[2024-04-11] MEDS: BUPIVACAINE HCL 0.5% PF 50 MG/10 ML VIAL 5 ML INJ (12:54)
[2024-04-11] MEDS: LIDOCAINE HCL 1%-EPINEPHRINE 1:100,000 10 ML MDV 5 ML INJ (12:54)
--- NOTE | 2024-04-11 13:06 | PM.ORPRC ---
Procedure Note Date of procedure: 04/11/24 Pre-op diagnosis: Right carpal tunnel syndrome Post-op diagnosis: same as pre-op Procedure: Procedure:Right endoscopic carpal tunnel release Surgeon: Theodore Anesthesia: Local with MAC Estimated blood loss:Minimal Tourniquet time: 2 Minutes at 200 mmHg Complications: None Indications for Surgery: The patient has had signs and symptoms of carpal tunnel syndrome that have failed conservative treatment. Options were discussed with the patient as well as risks and benefits and they have elected to proceed with the surgery. Operative procedure: Prior to surgery the patient received IV antibiotics. The operative extremity was marked preoperatively. After informed consent was obtained the patient was brought to the operating room where MAC anesthesia was administered. Preoperatively 5 mm 0.5% Marcaine plain with 5 mm 1% lidocaine with epinephrine were infiltrated in the operative sight. The arm was then prepped and draped in the usual sterile fashion after placement of a well padded tourniquet. The arm was elevated, exsanguinated, and the tourniquet was inflated. A 1 cm incision was then made in a preexisting distal wrist crease. Hemostasis was achieved with bipolar electrocautery. Blunt dissection was then carried down to the forearm fascia where a U-based flap was created. Proximally the fascia was incised for 2 cm under direct visualization. Attention was then turned to the endoscopic carpal tunnel release. The synovial elevator was used to clear the underside of the transverse carpal ligament of soft tissue. Sequential dilators were then placed. The endoscopic carpal tunnel released instrument was then placed. The transverse fibers were then identified and release from distal to proximal. The ligament was completely release. The tourniquet was deflated and hemostasis was achieved. The wound was irrigated and closed with a nylon suture. A sterile dressing was placed. The patient was brought to the recovery room. There were no preoperative or postoperative complications. Anesthesia: MAC and local Surgeon: Alex Jaimes Estimated blood loss (mL): 0 Pathology: none sent Condition: stable Disposition: PACU
[2024-04-11 13:08] VITALS: BP 91/65; PULSE 60; TEMP 36.3; O2SAT 97
[2024-04-11 13:23] VITALS: BP 121/73; PULSE 56; TEMP 36.3; O2SAT 96
[2024-04-11 13:38] VITALS: BP 128/86; PULSE 54; TEMP 36.3; O2SAT 96
== END 2024-04-11 13:38 | disposition home or self-care (01) ==
PROVIDERS: PCP Family Medicine; Visit Provider Orthopaedic Surgery
PROC: (CPT 01810; principal; 2024-04-11 13:00)
DX: G56.01 Carpal tunnel syndrome, right upper limb (principal); E66.01 Morbid (severe) obesity due to excess calories; Z68.41 Body mass index [BMI] 40.0-44.9, adult; Z87.891 Personal history of nicotine dependence; E78.5 Hyperlipidemia, unspecified; I10 Essential (primary) hypertension; I25.10 Atherosclerotic heart disease of native coronary artery without angina pectoris; Z95.5 Presence of coronary angioplasty implant and graft; E11.9 Type 2 diabetes mellitus without complications
CPT/HCPCS: 01810; 29848; 82948; J0665; J0690; J2250; J2704; J3010